=== PATIENT | male | born 1955 | race Caucasian/White ===

== ENCOUNTER 2023-12-18 05:47 | Inpatient (IN) ==
--- NOTE | 2023-11-29 11:53 | PAT Medication Instructions ---
Medication Instructions Date of Service November 29, 2023 Home Medications glipizide 5 mg tablet 5 mg PO BID lisinopril 10 mg tablet 10 mg PO QAM naproxen 250 mg tablet 250 mg PO BID PRN pioglitazone 45 mg tablet 45 mg PO QAM tamsulosin 0.4 mg capsule 0.8 mg PO HS ASK your surgeon for instructions naproxen 250 mg tablet 250 mg PO BID PRN DO NOT take the morning of surgery glipizide 5 mg tablet 5 mg PO BID lisinopril 10 mg tablet 10 mg PO QAM pioglitazone 45 mg tablet 45 mg PO QAM Take evening before surgery glipizide 5 mg tablet 5 mg PO BID tamsulosin 0.4 mg capsule 0.8 mg PO HS Other Notes NOTHING TO EAT OR DRINK AFTER MIDNIGHT. If you have any questions please call us at [phone] or [phone] or [phone] or [phone]
--- NOTE | 2023-12-04 12:55 | Anesthesiology Consultation ---
Date of Service December 04, 2023 Assessment & Plan (1) Encounter for pre-operative examination: - Check BSG AM DOS - Infectious disease screening: Per assessment on 12/04/23: No known infectious disease contacts or current infectious disease symptoms. No noted recent Covid positive test result. - S/P MRI lumbar spine without contrast (10/26/23): MAC at [facility] - Patient unable to void at PAT visit. He states he will take urine sample to upcoming PCP preop appt. Awaiting surgeon-ordered preop UA + preop evaluation (Dr. Herzog, appt 12/09). Chart Review Chart Review: Patient seen in Pre Admission Testing Teaching & Discussion Pre-Anesthesia Teaching/Discussion Notes: Instructed NPO after midnight before surgery,except medications with 15 cc of water. Medication instructions provided according to the [facility] guidelines. History Surgery Operation Date: 12/18/23 11:35 Proposed Procedures p L4-L5 Decompression and Fusion with Spinal Cord Monitoring - Tomás Paiz, Height/Weight Height: 5 ft 10 in Weight: 128.3 kg Allergies Allergy/AdvReac Type Severity Reaction Status Date / Time No Known Allergies Allergy Verified 11/28/23 08:28 Medications Home Medications Medication Instructions Recorded Confirmed Last Taken glipizide 5 mg tablet 5 mg PO BID 10/18/23 11/28/23 10/25/23 20:00 lisinopril 10 mg tablet 10 mg PO QAM 10/18/23 11/28/23 10/25/23 10:00 naproxen 250 mg tablet 250 mg PO BID PRN prn 10/18/23 11/28/23 10/25/23 20:00 pioglitazone 45 mg tablet 45 mg PO QAM 10/18/23 11/28/23 10/25/23 10:00 tamsulosin 0.4 mg capsule 0.8 mg PO HS 10/18/23 11/28/23 10/25/23 20:00 Past Medical History Medical History BPH (benign prostatic hyperplasia) Diabetes mellitus, type 2 NIDDM Hypertension Low back pain Exercise / Class Metabolic Activity II 4-5 Yardwork/Stairs/Walk up hill Past Surgical History Surgical History History of colonoscopy History of MRI MRI lumbar spine without contrast (10/26/23): MAC at [facility] History of right knee surgery right menicus repair History of tonsillectomy Hx of rotator cuff surgery right Past Anesthesia History No Hx of Anesthesia Complications and No Family Hx of Anesthesia Complications History of PONV No Hx of PONV and No Hx of Motion Sickness Social History Smoking Status: Never smoker Do You Dip or Chew Tobacco: Yes (Daily- advised none DOS) Hx Alcohol Use: No Hx Substance Use: No substance use type: does not use Review of Systems Patient denies chest pain, shortness of breath, dyspnea on exertion, fever, chills, cough, wheezing, palpitations. Physical Exam Vital Signs BP 159/83 P 78 TEMP 98.2 SP02 98%RA RESP 18 Physical Full cervical extension range of motion. Full TMJ range of motion. TMD 3 finger breaths Mallampati Score 3 Dentition: missing molars Lungs: clear throughout to auscultation Cardiac: regular rate and rhythm, no murmurs noted Spine: normal Carotid arteries: negative bruit Extremities: no LE edema Lab Results Anesthesia Preop Results Results Anesthesia Widget: WBC 5.37 K/ul (4.8-10.8) 12/04/23 Hgb 14.5 g/dl (14.0-18.0) 12/04/23 Hct 43.7 % (42.0-52.0) 12/04/23 Plt 150 K/uL (130-400) 12/04/23 Na 136 mmol/L (136-145) 12/04/23 K 4.6 mmol/L (3.5-5.1) 12/04/23 Cl 102 mmol/L (98-107) 12/04/23 CO2 27 mmol/L (21-32) 12/04/23 BUN 30 mg/dl (6-23) H 12/04/23 Creat 1.29 mg/dl (0.6-1.4) 12/04/23 Glucose Level 253 mg/dl (70-99(Fasting)) H 12/04/23 POC Glucose 139 mg/dl (70-99) H 10/26/23 PT 10.9 Seconds (9.0-12.0) 12/04/23 PTT 26 Seconds (21-31) 12/04/23 INR 1.0 (0.9-1.1) 12/04/23 HA1c 8.9 % (4.5-5.6) H 12/04/23 Blood Type B Positive 12/04/23 Antibody Screen NEGATIVE 12/04/23 Testing Laboratory Results *Surgeon's office made aware of elevated A1C + glucose* Electrocardiogram Date: 12/04/23 NSR at 77bpm. LAFB. Chest X-Ray Date: 12/04/23 FINDINGS: Cardiac silhouette is upper limits of normal in size. No pneumothorax, pleural effusion, airspace consolidation or pulmonary edema. Spondylitic spurring of the spine. IMPRESSION: No acute process.
[2023-12-18] MEDS ORDERED: DEXAMETHASONE SOD INJ 4 MG/ML VIAL ONE (06:57)
[2023-12-18] MEDS ORDERED: PROPOFOL IV EMULSION 10 MG/ML 20 ML VIAL IV ONE (06:57)
[2023-12-18] MEDS ORDERED: LIDOCAINE 2% 2 ML VIAL/AMP(20MG/ML) INFIL ONE ×2 (06:57)
[2023-12-18] MEDS ORDERED: fentaNYL citrate PF 100 MCG/2 ML VIAL ONE ×2 (06:57→08:18)
[2023-12-18] MEDS ORDERED: MIDAZOLAM HCL 1 MG/ML 2ML VIAL ONE (06:57)
[2023-12-18] MEDS ORDERED: ONDANSETRON INJ 2 MG/ML 2 ML VIAL ONE (06:57)
[2023-12-18] MEDS ORDERED: ROCURONIUM BROMIDE 10 MG/ML 5 ML VIAL IV ONE ×10 (06:58→08:16)
[2023-12-18] MEDS: ACETAMINOPHEN 500 MG TAB PO SCH (07:03)
[2023-12-18] MEDS: LR 15ML/HR IV SCH (07:04)
[2023-12-18] MEDS: GABAPENTIN 300 MG CAP PO SCH (07:04)
[2023-12-18] MEDS: CeleBREX 200 MG CAP PO SCH (07:08)
[2023-12-18] MEDS: LR 60ML/HR IV SCH (07:08)
--- NOTE | 2023-12-18 07:43 | History & Physical Bridge Note ---
Date of Service December 18, 2023 History & Physical Bridge Note I have examined the patient, reviewed the History & Physical and in the interval since the performance of the History & Physical I have noted the following changes of clinical significance: no changes noted
--- NOTE | 2023-12-18 07:44 | History & Physical Report ---
Date of Service December 18, 2023 Assessment & Plan (1) Neurogenic claudication due to lumbar spinal stenosis: Plan: L4-L5 decompression and fusion History of Present Illness Chief Complaint: Back and bilateral leg pain Primary Care Provider: Rm Tsang Capp, DO This is a 60-year-old male who presents with chronic persistent back and bilateral leg pain. Failing since course of nonoperative care is here for surgical invention. Allergies Allergy/AdvReac Type Severity Reaction Status Date / Time No Known Allergies Allergy Verified 12/18/23 06:48 Home Medications Medication Instructions Recorded Confirmed Type glipizide 5 mg tablet 5 mg PO BID 10/18/23 12/18/23 History lisinopril 10 mg tablet 10 mg PO QAM 10/18/23 12/18/23 History naproxen 250 mg tablet 250 mg PO BID PRN prn 10/18/23 12/18/23 History pioglitazone 45 mg tablet 45 mg PO QAM 10/18/23 12/18/23 History tamsulosin 0.4 mg capsule 0.8 mg PO HS 10/18/23 12/18/23 History Past Med/Surg History Medical History BPH (benign prostatic hyperplasia) Diabetes mellitus, type 2 NIDDM Hypertension Low back pain Surgical History History of colonoscopy History of MRI MRI lumbar spine without contrast (10/26/23): MAC at [facility] History of right knee surgery right menicus repair History of tonsillectomy Hx of rotator cuff surgery right Social History Smoking Status: Never smoker Second Hand Exposure: Yes ( smokes); Do You Dip or Chew Tobacco: Yes (Daily- advised none DOS); Tobacco Cessation Education Requested by Patient: No Hx Alcohol Use: No Hx Substance Use: No Preferred Language: Lithuanian Communication Ability: Effective Lime Vat Tender Required: No Beliefs That Will Affect Care: None Current Living Situation: Spouse Other Information That Helps Us Care for You: No Feels Safe at Home: Yes Safety Concerns: Feels Safe At This Time Assistive Devices: None Physical Exam Physical Exam: Patient is alert and oriented Heart regular rhythm Lungs clear Results & Data Results & Data Vital Signs (Past 12 Hours) Vital Signs Temp Pulse Resp BP Pulse Ox O2 Del Method 12/18/23 06:51 36.8 C 83 18 156/84 H 95 Room Air
[2023-12-18] MEDS: ceFAZolin 3000MG 3,000 MG/72.5 ML BAG IV SCH (07:51)
[2023-12-18] MEDS ORDERED: ePHEDrine sulfate 50 MG/ML AMP ONE (08:10)
[2023-12-18] MEDS: BUPIVACAINE/EPINEPHRINE 0.5% MPF 1:200,000 30 ML VIAL ONE (08:36)
[2023-12-18] MEDS: ceFAZolin 330 MG/ML 1 GM VIAL ONE (08:36)
[2023-12-18] MEDS ORDERED: PHENYLEPHRINE 100MCG/ML 10ML SYR IV ONE (08:41)
[2023-12-18] MEDS ORDERED: SUGAMMADEX SODIUM 200 MG/2 ML VIAL IV ONE (08:44)
[2023-12-18] MEDS ORDERED: SODIUM CHLORIDE 0.9% PF INJ 10 ML VIAL ONE ×2 (09:07)
[2023-12-18] MEDS ORDERED: PHENYLEPHRINE HCL 10 MG/ML VIAL ONE (09:08)
[2023-12-18] MEDS ORDERED: WATER, STERILE FOR INJ 10 ML VIAL ONE (09:10)
[2023-12-18] MEDS ORDERED: HYDROmorphone INJ 2 MG/ML SYR/VIAL IV PRN (09:16)
[2023-12-18] MEDS ORDERED: PROMETHAZINE HCL 6.25 MG in SODIUM CHLORIDE 0.9% 50 ML IV PRN (09:16)
[2023-12-18] MEDS ORDERED: ONDANSETRON INJ 2 MG/ML 2 ML VIAL IV PRN ×2 (09:16→11:05)
[2023-12-18] MEDS ORDERED: ATROPINE SULFATE 0.1 MG/ML 10ML SYR IV PRN (09:16)
[2023-12-18] MEDS ORDERED: ePHEDrine sulfate 50 MG/ML AMP IV PRN (09:16)
[2023-12-18] MEDS: FLOSEAL HEMOSTATIC MATRIX 10ML TOP ONE (09:33)
--- NOTE | 2023-12-18 09:44 | Operative Report ---
Post Operative Report Pre & Post Diagnosis Operation Date: 12/18/23 07:45 Pre-Op Diagnosis: #1 lumbar spinal stenosis with neurogenic claudication #2 spondylolisthesis L4-5 #3 morbid obesity Post-Op Diagnosis: Same I identified the patient and participated in the time-out.: Yes Procedure Operation Date: 12/18/23 07:45 Actual Procedures #1 lumbar decompression bilaterally facetectomies and foraminotomies L3-L4 L4- L5. #2 posterior spinal fusion L4-L5. #3 placed posterior instrumentation L4- L5. #4 interbody fusion L4-L5. #5 placement Spira 15 x 26 mm x 2 at L4-L5. #6 placement locally harvested morselized autograft and posterior gutters. #7 placement of infuse collagen sponge combined with Koros bone graft in the posterior gutters and Morpheus bone graft interbody space. Surgeon Tomás Paiz, Poiser Balance Mary Raymond Estimated Blood Loss 100 Findings See Below The patient is 5 foot 10 weighing over 120 kg with a BMI in excess of 40. The patient's body habitus did contribute to significant technical difficulty with positioning exposure and the procedure itself adding at least 50% increased operative time. Specimens None Indications This is a 60-year-old male who presents above-mentioned diagnosis after failing course of nonoperative care is here for surgical invention. Description of Procedure Patient was met with identified informed consent obtained. Patient was then taken to the operative suite underwent a patient placed in a prone position the Cesario table atop the Michael frame. All bony promises well-padded eyes inspected to ensure no external pressure placed upon them. This point the lumbar spine was prepped and draped in normal sterile fashion. Sharp dissection with the assistance of Bovie cautery from down to and exposing the lamina transverse processes of L4 and L5 bilaterally. From caudal cephalad fashion complete laminectomy of L4 was performed including bilateral medial facetectomies and foraminotomies addressing severe spinal stenosis. Partial laminectomy L3 was performed including bilateral medial facetectomies also addressing severe lateral recess stenosis. Pedicle screws were then placed in L for L5 bilaterally with assistance of fluoroscopy and appropriate sized yoselin placed. By way the transforaminal approach on the right a discectomy of L4-5 was performed endplates guided to subcortical bleeding bone and a 15 x 26 mm Spira cage filled with Morpheus tapped in position. Then proceeded to the left transforaminal region completed the discectomy at L4-L5 endplates guided to subcortically bone and a second 15 x 26 mm Spira cage filled with Morpheus bone graft tapped into position. The rods were then compressed locked into final position bilaterally. The transverse processes of L4-5 burred to subcortical bleeding bone. Infuse collagen sponge combined with Koros and local autograft placed in the posterior lateral gutters. 15 round RICKY drain inserted. The incision was then closed with 1 Vicryl in the fascia 2-0 Vicryl subcutaneously and 4 Monocryl for final skin closure. Steri-Strips sterile dressing placed. Patient waken taken to PACU in stable condition. Please note spinal cord monitoring was utilized at the procedure no changes noted. Lastly Mary Raymond was present at the entire procedure and all the patient positioning complex portion of the surgery and final skin closure. I attest to the content of the Intraoperative Record and any orders documented therein. Any exceptions are noted below.
--- NOTE | 2023-12-18 10:07 | Fluoroscopy Report ---
FL lumbar spine 2-3V CLINICAL HISTORY: L4-L5 Decompression/Fusion COMPARISON STUDY: None. FLUOROSCOPY TIME: 19 seconds FLUOROSCOPY IMAGES: 2 Ka,r: 19.2 mGy FINDINGS: Posterior decompression fusion at L4-L5 with pedicle screws and rods. The hardware appears intact. Disc spacers are in place. IMPRESSION: Fluoroscopic assistance as above. ACT 112: Negative or not required by law. Electronically signed by: Terry Knowles M.D. 12/18/2023 10:05 AM
[2023-12-18] MEDS: fentaNYL citrate PF 100 MCG/2 ML VIAL IV PRN (10:23)
[2023-12-18] MEDS ORDERED: LORazepam 0.5 MG TAB PO PRN (11:05)
[2023-12-18] MEDS ORDERED: traMADol HCL 50 MG TABLET PO PRN (11:05)
[2023-12-18] MEDS ORDERED: PHARMACY GLYCEMIC MGMT CONSULT PRN (11:05)
[2023-12-18] MEDS ORDERED: NALOXONE HCL 0.4 MG/1 ML VIAL/CARP IV PRN (11:05)
[2023-12-18] MEDS ORDERED: MAGNESIUM HYDROXIDE SUSP 30 ML UDC PO PRN (11:05)
[2023-12-18] MEDS ORDERED: ONDANSETRON 4 MG OD TAB PO PRN (11:05)
[2023-12-18] MEDS ORDERED: LORazepam 0.5 MG in SYRINGE 0.25 ML IV PRN (11:05)
[2023-12-18] MEDS ORDERED: FAMOTIDINE 20 MG TAB PO PRN (11:05)
[2023-12-18] MEDS ORDERED: DO NOT ADMINISTER FLU VACCINE PRN (11:05)
[2023-12-18] MEDS ORDERED: PROMETHAZINE HCL 12.5 MG in SODIUM CHLORIDE 0.9% 50 ML IV PRN (11:05)
[2023-12-18] MEDS ORDERED: ACETAMINOPHEN 500 MG TAB PO PRN (11:05)
[2023-12-18] MEDS ORDERED: HYDROmorphone INJ 1 MG/ML SYRINGE IV PRN (11:05)
[2023-12-18] MEDS ORDERED: ALUMINUM/MAGNESIUM SUSP 30 ML UDC PO PRN (11:05)
[2023-12-18] MEDS ORDERED: hydrOXYzine HCl 25 MG TAB PO PRN (11:05)
[2023-12-18] MEDS ORDERED: DO NOT ADMINISTER PNEUMOCOCCAL VACCINE PRN (11:05)
[2023-12-18] MEDS ORDERED: METOCLOPRAMIDE HCL INJ 5 MG/ML 2 ML VIAL IV PRN (11:05)
[2023-12-18] MEDS ORDERED: SOD PHOSPHATE/SOD BIPHOSPHATE ENEMA 132 ML BTL PR PRN (11:05)
[2023-12-18] MEDS ORDERED: diphenhydrAMINE Capsule 25 MG CAP PO PRN (11:05)
[2023-12-18] MEDS ORDERED: bisacodyL 10 MG SUPP PR PRN (11:05)
[2023-12-18] MEDS ORDERED: ACETAMINOPHEN 1,000 MG/100 ML VIAL IV PRN (11:05)
--- NOTE | 2023-12-18 11:26 | Consultation ---
Date of Consultation December 18, 2023 Assessment & Plan (1) Neurogenic claudication due to lumbar spinal stenosis: (2) Hypertension: (3) Diabetes mellitus, type 2: (4) BPH (benign prostatic hyperplasia): Plan Mr. Alaniz is a 68 year old male that presents to the [facility] for a planned elective L4-L5 decompression and fusion surgery after experiencing persistent back pain and leg pain with failed conservative treatment as an outpatient. PMH includes: HTN, NIDDM2, and BPH. Pre-op Hgb 14.5;EBL 100mL. Pre op A1C 8.9; received Decadron; anticipate hyperglycemia post op. Neurogenic claudication due to lumbar spinal stenosis: POD#0 s/p L4-L5 decompression and fusion under the care of Dr. Paiz. Per ortho for pain control, wound care, anticoagulation and activities. Monitor H&H, pre op Hgb 14.5 on 12/03; trend in AM continue incentive spirometry PT/OT when appropriate HTN: Chronic Takes Lisinopril; continue NIDDM2: Chronic Takes Actos and Glipizide; hold while inpt and place on ACHS SSI Received Decadron which can cause hyperglycemia Most recent A1C: 8.9 on 12/03 Diabetic diet per admitting team BPH: Chronic Takes Tamsulosin;continue Disposition: PCP: Dr. Rm Herzog in [place] Code Status: Full Code VTE Prophylaxis: Per admitting team I spent a total of 60 minutes coordinating, documenting, and providing care for this patient excluding time spent in the performance of separately billed services. All of the aforementioned completed while collaborating with the assigned attending physician for a full treatment plan. Please see their addendum for further details. Supervising Physician Co-Signing Physician Notes I have seen and discussed the case with the collaborating advanced practitioner. I agree with the above H&P. I have reviewed and confirmed the patients medical history, the findings on physical examination, and the patients diagnosis and treatment plan with Drea GRANT and agree with the information documented. In short, Mr. Pedro is a 68 year old gentleman with history of HTN, NIDDM2, and BPH who is now POD 0 of lumbar decompression and fusion. Patient doing well post-operatively. Instructed on use of incentive spirometry. GENERAL APPEARANCE: AxOx4, no acute distress. HEENT: NC, AT. MMM. EOMI, clear conjunctiva, oropharynx clear. NECK: Supple without lymphadenopathy. No stiffness or restricted ROM. HEART: Normal rate and regular rhythm, normal S1/S1, no m/r/g LUNGS: CTAB, moving air well. No crackles or wheezes are heard. ABDOMEN: Soft, nontender, nondistended with good bowel sounds heard. BACK: No CVAT, no obvious deformity. EXTREMITIES: Without cyanosis, clubbing or edema. NEUROLOGICAL: Grossly nonfocal. Alert and oriented, moving all 4 extremities. CN not formally tested but appear grossly intact. Observed to ambulate with nor mal gait. Skin: Warm and dry without any rash. #Neurogenic claudication s/p fusion and decompression Management per primary Follow CBC for post-op anemia, hgb 14.5 (12/03) Pain mgmt per pcp #DMTII Hold home oral antihyperglycemics SSI #HTN Continue lisinopril Rest of plan as above #BPH Tamsulosin I spent a total of 35 minutes coordinating, documenting, and providing care for this patient excluding time spent in the performance of separately billed services. All of the aforementioned completed outside of collaborating with the assigned advanced practitioner for a full treatment plan. I have reviewed the advanced practitioner's documentation, and I agree with, and take responsibility for the plan of care History of Present Illness Requesting Physician: Dr. Paiz Reason for Consultation: post operative medical consultation Attending Physician: Tomás Paiz, DO History of Present Illness Mr. Alaniz is a 68 year old male that presents to the [facility] for a planned elective L4-L5 decompression and fusion surgery after experiencing persistent back pain and leg pain with failed conservative treatment as an outpatient. PMH includes: HTN, NIDDM2, and BPH. Pre-op Hgb 14.5;EBL 100mL. Pre op A1C 8.9; received Decadron; anticipate hyperglycemia post op. Pt denies CUEVAS, dizziness, SOB, chest pain, Palpitations, N/V/D, abdominal pain or tenderness, recent falls or trauma. Pt sitting upright in his hospital bed, arousable and able to have full conversation. He is AAO x4. He was able to demonstrate appropriate incentive sp[facility]rometry use. [facility] management. We are available 19/03 for any questions or concerns. Thank you kindly for the consultation. Allergies Allergy/AdvReac Type Severity Reaction Status Date / Time No Known Allergies Allergy Verified 12/18/23 06:48 Home Medications Medication Instructions Recorded Confirmed Type glipizide 5 mg tablet 5 mg PO BID 10/18/23 12/18/23 History lisinopril 10 mg tablet 10 mg PO QAM 10/18/23 12/18/23 History naproxen 250 mg tablet 250 mg PO BID PRN prn 10/18/23 12/18/23 History pioglitazone 45 mg tablet 45 mg PO QAM 10/18/23 12/18/23 History tamsulosin 0.4 mg capsule 0.8 mg PO HS 10/18/23 12/18/23 History Patient History Medical History (Updated 12/18/23 @ 11:24 by JUANITA Rm) Diabetes mellitus, type 2 NIDDM BPH (benign prostatic hyperplasia) Low back pain Hypertension Surgical History History of MRI MRI lumbar spine without contrast (10/26/23): MAC at [facility] History of right knee surgery right menicus repair Hx of rotator cuff surgery right History of colonoscopy History of tonsillectomy Social History Smoking Status: Never smoker Second Hand Exposure: Yes ( smokes); Do You Dip or Chew Tobacco: Yes (Daily- advised none DOS); Tobacco Cessation Education Requested by Patient: No Hx Alcohol Use: No Hx Substance Use: No Preferred Language: Wolof Communication Ability: Effective Managing Attorney Required: No Beliefs That Will Affect Care: None Current Living Situation: Spouse Other Information That Helps Us Care for You: No Feels Safe at Home: Yes Safety Concerns: Feels Safe At This Time Assistive Devices: None Review of Systems Review of Systems: Neuro: (-) Falls, trauma, slurred speech HEENT: (-) CUEVAS, dizziness, dysphagia, visual or auditory changes CV: (-) CP, palpitations, swelling Resp: (-) SOB GI: (-) appetite changes, N/V/D, bowel changes : (-) urinary changes Skin: (-) rashes Psych: (-) anxiety, depression Physical Exam Physical Exam: Neuro: AAOx4, PERRLA, no aphagia, memory changes, CNII-XII grossly intact HEENT: head normocephalic, moist mucus membranes CV: S1/S2, (-) M/G/R, (-) edema, cap refill < 3 seconds Resp: Lungs CTA in all metzger. On RA GI: Abdomen S/NT/ND, Ax4 bowel sounds, (-) CVA tenderness Musculoskeletal: 5/5 B/L UE strength, 5/5 B/L LE strength. No gait disturbance Skin: (-) rashes , (-) erythema. Psych: euthymic mood Results & Data Vital Signs (Past 12 Hours) Vital Signs Temp Pulse Pulse Resp BP BP Pulse Ox 12/18/23 10:40 36.5 C 83 12 123/75 97 12/18/23 10:30 82 12 147/79 H 98 12/18/23 10:20 80 12 124/75 97 12/18/23 10:10 81 12 156/80 H 96 12/18/23 10:03 36.0 C L 79 16 184/85 H 92 12/18/23 06:51 36.8 C 83 18 156/84 H 95 O2 Del Method O2 Flow Rate 12/18/23 10:40 Nasal Cannula 2 12/18/23 10:30 Nasal Cannula 2 12/18/23 10:20 Oxymask 4 12/18/23 10:10 Oxymask 4 12/18/23 10:03 Room Air, Oxymask 6 12/18/23 06:51 Room Air
--- NOTE | 2023-12-18 11:27 | Anesthesiology Progress Note ---
Date of Service December 18, 2023 Anesthesia Post Procedure Vital Signs Vital Signs: Temp Pulse Pulse Resp BP BP Pulse Ox 12/18/23 11:00 36.6 C 86 16 138/81 98 12/18/23 10:40 36.5 C 83 12 123/75 97 12/18/23 10:30 82 12 147/79 H 98 12/18/23 10:20 80 12 124/75 97 12/18/23 10:10 81 12 156/80 H 96 12/18/23 10:03 36.0 C L 79 16 184/85 H 92 12/18/23 06:51 36.8 C 83 18 156/84 H 95 O2 Del Method O2 Flow Rate 12/18/23 11:00 Nasal Cannula 2 12/18/23 10:40 Nasal Cannula 2 12/18/23 10:30 Nasal Cannula 2 12/18/23 10:20 Oxymask 4 12/18/23 10:10 Oxymask 4 12/18/23 10:03 Room Air, Oxymask 6 12/18/23 06:51 Room Air Pain Intensity Back: Pain Intensity: 3 Transfer of Care Handoff Completed per policy Notes Mental Status: alert / awake / arousable and participated in evaluation Patient Amnestic to Procedure: Yes Nausea / Vomiting: adequately controlled Pain: adequately controlled Airway Patency, RR, SpO2: stable & adequate BP & HR: stable & adequate Hydration State: stable & adequate Anesthetic Complications: no major complications apparent
[2023-12-18] MEDS: LACTATED RINGER'S 1,000 ML IV SCH (12:16)
[2023-12-18] MEDS: KETOROLAC 30 MG/ML VIAL IV SCH (12:16)
[2023-12-18] MEDS: INSULIN ASPART PER UNIT CHARGE SC SCH (12:35)
[2023-12-18] MEDS: LANTUS PER UNIT CHARGE SC SCH (12:36)
--- NOTE | 2023-12-18 13:09 | Pharmacy Report ---
Pharmacy Glycemic Short Note 2 - Date of Service December 18, 2023 - Glycemic Short BSG Results (Last 24 hours): 12/18/23 12/18/23 12/18/23 06:26 10:06 11:22 POC Glucose 275 H 276 H 299 H OUTPATIENT ANTIDIABETIC REGIMEN: * glipizide 10mg PO BID * pioglitazone 45mg PO QAM * HbA1c 8.9% (12/04/23) ASSESSMENT: * Tiago is a 68 YOM admitted status post spinal decompression/fusion with a history of type 2 diabetes mellitus. Pharmacy has been consulted for glycemic management while inpatient. * Preoperative BSG significantly elevated this AM, he does not appear to have received steroids preoperatively. Will initiate basal insulin at a weight based stress of 2. He is ordered dexamethasone 6mg IV daily x3 days starting tomorrow. Reassess basal insulin response, will likely have increased requirements with steroids. * Novolog started at a weight based stress of 2, will likely need tightened tomorrow with steroids. PLAN FOR INPATIENT GLYCEMIC CONTROL: * Hold outpatient oral diabetes medications * Basal insulin * Lantus 16 units SQ BID, reassess with steroids in AM * Bolus insulin * NovoLog per scale ACHS or Q6hrs while NPO * Goal Range: Low 110 mg/dL - High 140 mg/dL * Correction Factor: 25 mg/dL/unit * Nutritional / Prandial insulin per carb ratio of 1 unit per 8 grams CHO consumed
[2023-12-18] MEDS: ceFAZolin 2000MG 2,000 MG/15 ML SYR IV SCH (18:10)
[2023-12-18] MEDS: TAMSULOSIN HCL 0.4 MG CAP PO SCH (19:31)
[2023-12-18] MEDS: DOCUSATE SODIUM/SENNA 50/8.6MG TAB PO SCH (19:31)
[2023-12-18] MEDS ORDERED: glipiZIDE 5 MG TAB PO SCH (21:00)
[2023-12-19] MEDS: POLYETHYLENE (MIRALAX) 17 GM PACK PO SCH (05:18)
[2023-12-19] MEDS: HYDROmorphone INJ 0.5 MG/0.5 ML SYR IV PRN (05:31)
[2023-12-19 07:34] LABS: Basophils # (auto) 0.02 K/uL (0.00-0.20); Basophils % (auto) 0.2 %; Eosinophils # (auto) 0.06 K/uL (0.00-0.50); Eosinophils % (auto) 0.6 %; Hematocrit (blood only) 38.1 % (42.0-52.0); Hemoglobin 12.7 g/dl (14.0-18.0); Immature Granulocytes # (auto) 0.06 K/uL (0.01-0.20); Immature Granulocytes % (auto) 0.6 %; Lymphocytes % (auto) 17.1 %; Mean Corpuscular Hemoglobin 28.9 pg (25.0-34.0); Mean Corpuscular Hgb Conc 33.3 g/dL (32.0-36.0); Mean Corpuscular Volume 86.6 fL (80.0-100.0); Mean Platelet Volume 10.7 fL (9.4-12.4); Monocytes # (auto) 1.47 K/uL (0.11-0.59); Monocytes % (auto) 14.8 %; Neutrophils # (auto) 6.64 K/uL (1.40-6.50); Neutrophils % (auto) 66.7 %; Platelet Count 139 K/uL (130-400); RDW Coefficient of Variation 13.3 % (11.5-14.5); RDW Standard Deviation 42.8 fL (36.4-46.3); White Blood Count 9.95 K/ul (4.8-10.8)
[2023-12-19 07:39] LABS: BUN Creatinine Ratio 24.1 (10-20); Calcium 8.8 mg/dl (8.6-10.3); Creatinine Clr Calc Pharmacy 58.4 ml/min; Est GFR (African American) 49.8 ml/min; Potassium 4.6 mmol/L (3.5-5.1)
[2023-12-19] MEDS: dexAMETHasone 6 MG in SYRINGE 0 ML IV SCH (07:46)
[2023-12-19] MEDS: lisinopril 10 MG TAB PO SCH (07:50)
[2023-12-19] MEDS ORDERED: NON-FORMULARY MEDICATION (Pioglitazone 45 mg Tablet) PO SCH (09:00)
[2023-12-19] MEDS: LANTUS PER UNIT CHARGE SC SCH (09:08)
--- NOTE | 2023-12-19 09:47 | Orthopedic Progress Note ---
Date of Service December 19, 2023 Assessment & Plan (1) Neurogenic claudication due to lumbar spinal stenosis: Plan: At this time we will continue physical therapy monitor his RICKY output anticipate discharge home in next few days. Admission and Anticipated Discharge Date Admission Date: December 18, 2023 Subjective Back pain controlled leg pain markedly improved Physical Exam Physical Exam: Patient is in the chair at the bedside. Is good strength testing. Peers comfortable. Results & Data Vital Signs (Past 12 Hours) Vital Signs Temp Pulse Resp BP Pulse Ox O2 Del Method 12/19/23 07:09 37.4 C 87 20 129/74 95 Room Air 12/19/23 03:02 37.1 C 90 16 143/77 H 96 Room Air 12/18/23 23:19 37.1 C 77 16 164/79 H 98 Room Air Queries Orthopedic Spine Obesity: Yes
--- NOTE | 2023-12-19 17:22 | Hospitalist Progress Note ---
Date of Service December 19, 2023 Assessment & Plan (1) Neurogenic claudication due to lumbar spinal stenosis: (2) Hypertension: (3) Diabetes mellitus, type 2: (4) BPH (benign prostatic hyperplasia): Plan Mr. Alaniz is a 68 year old male that presents to the [facility] for a planned elective L4-L5 decompression and fusion surgery after experiencing persistent back pain and leg pain with failed conservative treatment as an outpatient. PMH includes: HTN, NIDDM2, and BPH. Pre-op Hgb 14.5;EBL 100mL. Pre op A1C 8.9; received Decadron; anticipate hyperglycemia post op. Neurogenic claudication due to lumbar spinal stenosis: s/p L4-L5 decompression and fusion on 12/18/2023 under the care of Dr. Paiz. Per ortho for pain control, wound care, anticoagulation and activities. Monitor H&H, pre op Hgb 14.5 on 12/03; trend in AM continue incentive spirometry PT/OT when appropriate Clinically much better Labs remain unremarkable except creatinine is slightly up at 1.62 He was advised to drink more fluid Will monitor PRP HTN: Chronic Takes Lisinopril; continue NIDDM2: Chronic Takes Actos and Glipizide; hold while inpt and place on ACHS SSI Received Decadron which can cause hyperglycemia Most recent A1C: 8.9 on 12/03 Diabetic diet per admitting team BPH: Chronic Takes Tamsulosin;continue Disposition: PCP: Dr. Rm Herzog in [place] Code Status: Full Code VTE Prophylaxis: Per admitting team Admission and Anticipated Discharge Date Admission Date: December 18, 2023 Subjective 12/19/2023 The patient was seen and examined in medical floor He has been complaining some pain at the back but radiculopathic pain has been improving No chest pain and no shortness of breath and no abdominal pain nausea no vomiting Review of Systems Review of Systems: All systems reviewed and are unremarkable except as noted below Physical Exam Physical Exam: Sitting on a chair without any acute distress Constitutional: well developed, well nourished and + obese; not ill appearing Eyes: PERRL, conjunctivae normal, anicteric sclerae ENMT: external ear and nose normal, oropharynx normal Neck: trachea midline, no thyromegaly Respiratory: no respiratory distress Auscultation: lungs clear to auscultation bilaterally Cardiovascular: Rate/Rhythm: regular rate and regular rhythm; not tachycardic Heart Sounds: normal S1 and normal S2; no murmur Extremities: no edema Gastrointestinal (Abdomen): Inspection/Auscultation: normal bowel sounds; abdomen not distended Percussion/Palpation: abdomen soft; abdomen nontender Musculoskeletal: No acute arthritis involving any of the joint Neurologic: normal touch/pain/proprioception and moves all extremities; no focal motor deficits Psychiatric: A+Ox3, euthymic affect Lymphatic: no cervical or axillary lymphadenopathy Results & Data Results & Data Vital Signs (Past 12 Hours) Vital Signs Temp Pulse Resp BP Pulse Ox O2 Del Method 12/19/23 14:26 37.5 C 92 H 18 131/78 95 Room Air 12/19/23 07:09 37.4 C 87 20 129/74 95 Room Air Laboratory Results Short CBC 12/19/23 Range/Units 06:34 WBC 9.95 (4.8-10.8) K/ul Hgb 12.7 L (14.0-18.0) g/dl Hct 38.1 L (42.0-52.0) % Plt Count 139 (130-400) K/uL BMP 12/19/23 06:34 Sodium 135 L Potassium 4.6 Chloride 102 Carbon Dioxide 24 BUN 39 H Creatinine 1.62 H Glucose 197 H Calcium 8.8 Medications Administered Current Inpatient Medications Acetaminophen (Acetaminophen 500 Mg Tab) 1,000 mg PO Q8H PRN PRN Reason: MILD Pain Scale 1,2,3 & Pre PT Stop: 01/17/24 11:04 Al Hydrox/Mg Hydrox/Simethicone (Aluminum/Magnesium Susp 30 Ml Udc) 30 ml PO Q6H PRN PRN Reason: Dyspepsia Stop: 01/17/24 11:04 Bisacodyl (Bisacodyl 10 Mg Supp) 10 mg NM DAILY PRN PRN Reason: Constipation Stop: 01/17/24 11:04 Diphenhydramine HCl (Diphenhydramine Capsule 25 Mg Cap) 25 mg PO Q6H PRN PRN Reason: Allergic Rhinitis/Insomnia Stop: 01/17/24 11:04 Famotidine (Famotidine 20 Mg Tab) 20 mg PO Q12H PRN PRN Reason: Dyspepsia Stop: 01/17/24 11:04 Hydromorphone HCl (Hydromorphone Inj 0.5 Mg/0.5 Ml Syr) 0.5 mg IV Q3H PRN PRN Reason: MODERATE Pain (Scale 4,5,6) & Pre PT Stop: 01/01/24 11:04 Last Admin: 12/19/23 05:31 Dose: 0.5 mg Hydromorphone HCl (Hydromorphone Inj 1 Mg/Ml Syringe) 1 mg IV Q3H PRN PRN Reason: SEVERE Pain (Scale 7,8,9,10) Stop: 01/01/24 11:04 Hydroxyzine HCl (Hydroxyzine Hcl 25 Mg Tab) 25 mg PO Q8H PRN PRN Reason: Anxiety Stop: 01/17/24 11:04 Promethazine HCl 12.5 mg/ (Sodium Chloride) 50.5 mls @ 202 mls/hr IV Q6H PRN PRN Reason: Nausea &/or Vomiting Stop: 01/17/24 11:04 Lorazepam 0.5 mg/ Syringe 0.5 mls @ 2 mls/min IV Q8H PRN; Protocol PRN Reason: Sedation/Anxiety Stop: 01/17/24 11:04 Dexamethasone 6 mg/ Syringe 1.5 mls @ 1 mls/min IV DAILY [facility] Stop: 12/21/23 09:02 Last Admin: 12/19/23 07:46 Dose: 1 mls/min Influenza Virus Vaccine Quadrival (Do Not Administer Flu Vaccine) 1 each N/A PRN PRN PRN Reason: Notification Stop: 01/17/24 11:04 Insulin Aspart (Insulin Aspart Per Unit Charge) 0 units SC ACHS [facility] Stop: 01/17/24 11:59 Last Admin: 12/19/23 12:47 Dose: 13 units Insulin Glargine (Lantus Per Unit Charge) 25 units SC BID [facility]; Protocol Stop: 01/18/24 08:59 Last Admin: 12/19/23 09:08 Dose: 25 units Lisinopril (Lisinopril 10 Mg Tab) 10 mg PO QAM [facility] Stop: 01/18/24 08:59 Last Admin: 12/19/23 07:50 Dose: 10 mg Lorazepam (Lorazepam 0.5 Mg Tab) 0.5 mg PO Q8H PRN PRN Reason: Sedation/Anxiety Stop: 01/17/24 11:04 Magnesium Hydroxide (Magnesium Hydroxide Susp 30 Ml Udc) 30 ml PO Q24H PRN PRN Reason: Constipation Stop: 01/17/24 11:04 Metoclopramide HCl (Metoclopramide Hcl Inj 5 Mg/Ml 2 Ml Vial) 10 mg IV Q6H PRN PRN Reason: Nausea &/or Vomiting Stop: 01/17/24 11:04 Miscellaneous Information (Pharmacy Glycemic Mgmt Consult) 1 each N/A UD PRN PRN Reason: Consult Stop: 01/17/24 11:04 Naloxone HCl (Naloxone Hcl 0.4 Mg/1 Ml Vial/Carp) 0.1 mg IV Q5M PRN PRN Reason: Oversedation/Resp depression Stop: 01/17/24 11:04 Ondansetron HCl (Ondansetron Inj 2 Mg/Ml 2 Ml Vial) 4 mg IV Q6H PRN PRN Reason: Nausea &/or Vomiting Stop: 01/17/24 11:04 Ondansetron HCl (Ondansetron 4 Mg Od Tab) 4 mg PO Q6H PRN PRN Reason: Nausea Stop: 01/17/24 11:04 Oxycodone HCl (Oxycodone Hcl Ir 5 Mg Tab (Immediate Release)) 5 - 10 mg PO Q4H PRN PRN Reason: Pain & Pre PT Stop: 01/01/24 11:04 Pneumococcal Polyvalent Vaccine (Do Not Administer Pneumococcal Vaccine) 1 each N/A PRN PRN PRN Reason: Notification Stop: 01/17/24 11:04 Senna/Docusate Sodium (Docusate Sodium/Senna 50/8.6mg Tab) 2 tab PO HS [facility] Stop: 01/17/24 20:59 Last Admin: 12/18/23 19:31 Dose: 2 tab Sodium Biphosphate/Sodium Phosphate (Sod Phosphate/Sod Biphosphate Enema 132 Ml Btl) 132 ml NM ONE PRN PRN Reason: Constipation Stop: 01/17/24 11:04 Tamsulosin HCl (Tamsulosin Hcl 0.4 Mg Cap) 0.8 mg PO HS [facility] Stop: 01/17/24 20:59 Last Admin: 12/18/23 19:31 Dose: 0.8 mg Tramadol HCl (Tramadol Hcl 50 Mg Tablet) 50 - 100 mg PO Q4H PRN PRN Reason: Moderate-Severe pain & Pre PT Stop: 01/17/24 11:04
[2023-12-19] MEDS: INSULIN ASPART PER UNIT CHARGE SC SCH (23:51)
[2023-12-19] MEDS: oxyCODONE HCL IR 5 MG TAB (IMMEDIATE RELEASE) PO PRN (23:52)
[2023-12-20 08:58] LABS: Basophils # (auto) 0.02 K/uL (0.00-0.20); Basophils % (auto) 0.2 %; Eosinophils % (auto) 0.8 %; Hematocrit (blood only) 38.6 % (42.0-52.0); Hemoglobin 12.8 g/dl (14.0-18.0); Immature Granulocytes # (auto) 0.15 K/uL (0.01-0.20); Immature Granulocytes % (auto) 1.2 %; Lymphocytes # (auto) 1.88 K/uL (1.20-3.40); Lymphocytes % (auto) 14.9 %; Mean Corpuscular Hemoglobin 28.9 pg (25.0-34.0); Mean Corpuscular Hgb Conc 33.2 g/dL (32.0-36.0); Mean Corpuscular Volume 87.1 fL (80.0-100.0); Mean Platelet Volume 10.6 fL (9.4-12.4); Monocytes # (auto) 2.07 K/uL (0.11-0.59); Monocytes % (auto) 16.5 %; Neutrophils # (auto) 8.36 K/uL (1.40-6.50); Neutrophils % (auto) 66.4 %; Platelet Count 147 K/uL (130-400); RDW Coefficient of Variation 13.3 % (11.5-14.5); RDW Standard Deviation 42.8 fL (36.4-46.3); Red Blood Count 4.43 M/uL (4.70-6.10); White Blood Count 12.58 K/ul (4.8-10.8)
[2023-12-20 09:12] LABS: Calcium 9.1 mg/dl (8.6-10.3); Creatinine Clr Calc Pharmacy 63.1 ml/min; Est GFR (African American) 54.7 ml/min; Est GFR (Non-African American) 47.2 ml/min; Potassium 4.3 mmol/L (3.5-5.1)
--- NOTE | 2023-12-20 10:54 | Discharge Summary ---
Date of Service December 20, 2023 Admission HPI Per Admitting Provider This is a 60-year-old male who presents with chronic persistent back and bilateral leg pain. Failing since course of nonoperative care is here for surgical invention. Principal Diagnosis Lumbar spinal stenosis with neurogenic claudication Discharge Data Allergies Allergy/AdvReac Type Severity Reaction Status Date / Time No Known Allergies Allergy Verified 12/18/23 06:48 Consultations 12/18/23 11:05 Consult Hospitalist Routine Procedures Performed Operation Date: 12/18/23 07:45 Actual Procedures p L4-L5 Decompression and Fusion with Spinal Cord Monitoring(Not Applicable) - Tomás Paiz DO Ordered Studies 12/18/23 07:00 [place] lumbar spine 2-3V Routine Hospital Course (1) Neurogenic claudication due to lumbar spinal stenosis: Patient went lumbar decompression fusion tolerated this well was taken to the orthopedic floor postoperative. Postop he progressed appropriate. Leg pain improved RICKY drain decreasing appropriately. Excellent strength testing. Pain well-controlled. Subsidy discharged home. Discharge orders instructions from the chart for further review. Total Time Total Time Spent Total Time Spent (In Minutes): 20 minutes Discharge Plan Discharge Items Patient Disposition: Home - Self-Care Reason For Visit: POST OP Discharge Diagnosis: Lumbar spinal stenosis with neurogenic claudication Activity: As commented below Non-emergency contact: Primary Care Provider Call non-emergency contact if: you have any medication questions Follow-up/Referrals: Rm Herzog DO [Primary Care Provider] - Diet: Regular Addtl Attending Provider Instructions: ACTIVITY RECOMMENDATIONS: SELF CARE INSTRUCTIONS AFTER THORACIC/LUMBAR FUSIONS 1. You may walk to your tolerance. It is good exercise for your legs and back. Expect some back and intermittent leg aches and pains. 2. You may perform "counter-top" level activities (make a sandwich, josseline with a project, etc.). 3. No bending or lifting of more than 10 pounds or back twisting of any nature (roll like a log when turning in bed). 4. You may ride in a car for 20-30 minutes at a time. No driving until after your first visit with your doctor. 5. Frequent changes of position and restricting sitting to 30 minutes at a time will help limit the amount of back spasms and stiffness you may experience. 6. You may discontinue the use of ambulatory aids (cane, crutches, etc.) once your strength and confidence allow. 7. You may photofinishing laboratory worker the shower and let water strike your incision when you arrive home at least once daily. Do not take a tub bath, sit in a hot tub or go into a swimming pool until after your first recheck in the office. SPECIAL CARE INSTRUCTIONS: VERY IMPORTANT TO READ AND REVIEW A. Your surgical incision has been closed with a cosmetic suture under the skin that will dissolve in about 6 weeks. In 14 days, you can use a pair of clean scissors and cut the suture that is left outside of the skin at the ends of your incision. 1. The small skin tapes can be removed 7 days after surgery if they have not fallen off by that point. 2. You may keep the wound open to air as much as possible to promote healing after post-op day number 5 unless told otherwise by your doctor. 3. If you think the wound looks like it is becoming infected (redness or worsening drainage) and/or you are experiencing fever, chill or worsening back pain and muscle spasms, contact the office so that we may evaluate you as soon as possible. B. Complications are uncommon, but please contact us if you have any signs or symptoms of: 1. wound infection (fever higher than 102.5 degrees F, redness, separation of wound, drainage, or increasing pain from the incision) 2. blood clots in legs (pain, swelling, redness and warmth in legs) 3. urinary tract infection (fever higher than 102.5 degrees F, burning upon urination or increased frequency of urination) 4. nerve problems (inability to walk on your toes or heels, numbness, loss of bowel or bladder control) 5. any other symptoms that concern you C. Please call the office at if you have any concerns or questions about your operation or recovery. D. No smoking! Smoking drastically decreases the chance of a solid fusion. E. Do not take any anti-inflammatory medications (Indocin, Advil, Motrin, Aspirin, Naprosyn, etc.) as these may inhibit the chance of a solid fusion. Tylenol is okay to take for pain. MANAGING PAIN AFTER SPINAL SURGERY 1. Narcotic medication is intended for short-term use and will be provided for surgical pain. Surgical pain usually lasts for a period of 4-6 weeks. Narcotic medication includes Percocet, Vicodin, Darvocet, Tylenol #3 or Lortab. 2. Longer-term pain is more appropriately treated with non-narcotic medication such as Tylenol ES. 3. Muscle spasm is not appropriately treated with narcotics. Muscle relaxers such as Soma, Flexeril or Skelaxin can be used along with Tylenol ES. 4. Remember that we all live with some "aches and pains". This is not unusual or uncommon after an injury or as we get older. a. Back pain is expected and may include muscle spasms for 4 to 6 weeks after surgery. The pain should gradually improve. If the pain worsens for no apparent reason, please contact the office. b. Intermittent leg pain may also be experienced and should not be concerned about unless it worsens for no apparent reason. If so, please contact the office. 5. We will provide appropriate medication within the normal guidelines of their prescribed use. We will also be very cautious and aware of potential abuse and extended duration of patients' medication needs. a. Pain medications are for your comfort and to assist with sleep and rest so that the tissue can heal. They are not provided in order to return to normal activity and should not be used through the day. To do so or worsening pain at night can result from ongoing tissue damage and development of tolerance to the prescribed medicine. 6. Please allow 2-3 days to process refills. Prescriptions will not be mailed but must be picked up at the office. FOLLOW UP VISIT: Keep your scheduled follow-up appointment. Any questions, please call the office at . Pending Studies at Discharge: No Stand-Alone Forms: My [facility], Smoking Cessation Medications and DC Order Prescriptions: New tramadol 50 mg tablet 50 mg PO Q6H PRN (Reason: pain, moderate) Qty: 30 0RF oxycodone 5 mg tablet 5 mg PO Q6H PRN (Reason: pain) Qty: 30 0RF Continued lisinopril 10 mg Tablet 10 mg PO QAM pioglitazone 45 mg Tablet 45 mg PO QAM tamsulosin 0.4 mg Capsule 0.8 mg PO HS glipizide 5 mg Tablet 5 mg PO BID Discontinued naproxen 250 mg Tablet 250 mg PO BID PRN (Reason: prn) Discharge Orders: Discharge Order (Routine); Ordered 12/20/23 Ordered By: Tomás Paiz Admission Data Admit Date/Time: 12/18/23 09:46 Attending Provider: Tomás Paiz Admit Provider: Tomás Paiz Primary Care Provider: Rm Herzog Other Providers: Socorro Gleason
--- NOTE | 2023-12-20 14:51 | Hospitalist Progress Note ---
Date of Service December 20, 2023 Assessment & Plan (1) Neurogenic claudication due to lumbar spinal stenosis: (2) Hypertension: (3) Diabetes mellitus, type 2: (4) BPH (benign prostatic hyperplasia): Plan Mr. Alaniz is a 68 year old male that presents to the [facility] for a planned elective L4-L5 decompression and fusion surgery after experiencing persistent back pain and leg pain with failed conservative treatment as an outpatient. PMH includes: HTN, NIDDM2, and BPH. Pre-op Hgb 14.5;EBL 100mL. Pre op A1C 8.9; received Decadron; anticipate hyperglycemia post op. Neurogenic claudication due to lumbar spinal stenosis: s/p L4-L5 decompression and fusion on 12/18/2023 under the care of Dr. Paiz. Per ortho for pain control, wound care, anticoagulation and activities. Monitor H&H, pre op Hgb 14.5 on 12/03; trend in AM continue incentive spirometry PT/OT when appropriate Clinically much better Labs remain unremarkable except creatinine is slightly up at 1.62 He was advised to drink more fluid His blood counts and kidney function remain unremarkable Medically stable to be discharged HTN: Chronic Takes Lisinopril; continue Remains on the upper side but reasonably stable NIDDM2: Chronic Takes Actos and Glipizide; hold while inpt and place on ACHS SSI Received Decadron which can cause hyperglycemia Most recent A1C: 8.9 on 12/03 Diabetic diet per admitting team Blood sugar remains stable BPH: Chronic Takes Tamsulosin;continue Disposition: PCP: Dr. Rm Herzog in [place] Code Status: Full Code VTE Prophylaxis: Per admitting team Admission and Anticipated Discharge Date Admission Date: December 18, 2023 Subjective 12/19/2023 The patient was seen and examined in medical floor He has been complaining some pain at the back but radiculopathic pain has been improving No chest pain and no shortness of breath and no abdominal pain nausea no vomiting 12/20/2023 The patient was seen and examined in medical floor He has been feeling much better and may be going home this afternoon Denies any significant symptoms Minimal pain at the back without radiation Review of Systems Review of Systems: All systems reviewed and are unremarkable except as noted below Physical Exam Physical Exam: Sitting on a chair without any acute distress Constitutional: well developed, well nourished and + obese; not ill appearing Eyes: PERRL, conjunctivae normal, anicteric sclerae ENMT: external ear and nose normal, oropharynx normal Neck: trachea midline, no thyromegaly Respiratory: no respiratory distress Auscultation: lungs clear to auscultation bilaterally Cardiovascular: Rate/Rhythm: regular rate and regular rhythm; not tachycardic Heart Sounds: normal S1 and normal S2; no murmur Extremities: no edema Gastrointestinal (Abdomen): Inspection/Auscultation: normal bowel sounds; abdomen not distended Percussion/Palpation: abdomen soft; abdomen nontender Musculoskeletal: Minimal back pain without radiation Neurologic: normal touch/pain/proprioception and moves all extremities; no focal motor deficits Psychiatric: A+Ox3, euthymic affect Lymphatic: no cervical or axillary lymphadenopathy Results & Data Results & Data Vital Signs (Past 12 Hours) Vital Signs Temp Pulse Pulse Resp BP BP Pulse Ox 12/20/23 11:35 37.0 C 92 H 78 17 132/75 172/76 H 99 12/20/23 07:10 37.0 C 78 17 132/75 99 O2 Del Method 12/20/23 11:35 12/20/23 07:10 Room Air Laboratory Results Short CBC 12/20/23 Range/Units 08:19 WBC 12.58 H (4.8-10.8) K/ul Hgb 12.8 L (14.0-18.0) g/dl Hct 38.6 L (42.0-52.0) % Plt Count 147 (130-400) K/uL BMP 12/20/23 08:19 Sodium 135 L Potassium 4.3 Chloride 102 Carbon Dioxide 26 BUN 45 H Creatinine 1.50 H Glucose 150 H Calcium 9.1 Medications Administered Current Inpatient Medications Acetaminophen (Acetaminophen 500 Mg Tab) 1,000 mg PO Q8H PRN PRN Reason: MILD Pain Scale 1,2,3 & Pre PT Stop: 01/17/24 11:04 Al Hydrox/Mg Hydrox/Simethicone (Aluminum/Magnesium Susp 30 Ml Udc) 30 ml PO Q6H PRN PRN Reason: Dyspepsia Stop: 01/17/24 11:04 Bisacodyl (Bisacodyl 10 Mg Supp) 10 mg OK DAILY PRN PRN Reason: Constipation Stop: 01/17/24 11:04 Diphenhydramine HCl (Diphenhydramine Capsule 25 Mg Cap) 25 mg PO Q6H PRN PRN Reason: Allergic Rhinitis/Insomnia Stop: 01/17/24 11:04 Famotidine (Famotidine 20 Mg Tab) 20 mg PO Q12H PRN PRN Reason: Dyspepsia Stop: 01/17/24 11:04 Hydromorphone HCl (Hydromorphone Inj 0.5 Mg/0.5 Ml Syr) 0.5 mg IV Q3H PRN PRN Reason: MODERATE Pain (Scale 4,5,6) & Pre PT Stop: 01/01/24 11:04 Last Admin: 12/19/23 05:31 Dose: 0.5 mg Hydromorphone HCl (Hydromorphone Inj 1 Mg/Ml Syringe) 1 mg IV Q3H PRN PRN Reason: SEVERE Pain (Scale 7,8,9,10) Stop: 01/01/24 11:04 Hydroxyzine HCl (Hydroxyzine Hcl 25 Mg Tab) 25 mg PO Q8H PRN PRN Reason: Anxiety Stop: 01/17/24 11:04 Promethazine HCl 12.5 mg/ (Sodium Chloride) 50.5 mls @ 202 mls/hr IV Q6H PRN PRN Reason: Nausea &/or Vomiting Stop: 01/17/24 11:04 Lorazepam 0.5 mg/ Syringe 0.5 mls @ 2 mls/min IV Q8H PRN; Protocol PRN Reason: Sedation/Anxiety Stop: 01/17/24 11:04 Dexamethasone 6 mg/ Syringe 1.5 mls @ 1 mls/min IV DAILY [facility] Stop: 12/21/23 09:02 Last Admin: 12/20/23 08:43 Dose: 1 mls/min Influenza Virus Vaccine Quadrival (Do Not Administer Flu Vaccine) 1 each N/A PRN PRN PRN Reason: Notification Stop: 01/17/24 11:04 Insulin Aspart (Insulin Aspart Per Unit Charge) 0 units SC ACHS [facility] Stop: 01/17/24 11:59 Last Admin: 12/20/23 12:18 Dose: 22 units Insulin Glargine (Lantus Per Unit Charge) 25 units SC BID [facility]; Protocol Stop: 01/18/24 08:59 Last Admin: 12/20/23 08:50 Dose: 25 units Lisinopril (Lisinopril 10 Mg Tab) 10 mg PO QAM [facility] Stop: 01/18/24 08:59 Last Admin: 12/20/23 08:42 Dose: 10 mg Lorazepam (Lorazepam 0.5 Mg Tab) 0.5 mg PO Q8H PRN PRN Reason: Sedation/Anxiety Stop: 01/17/24 11:04 Magnesium Hydroxide (Magnesium Hydroxide Susp 30 Ml Udc) 30 ml PO Q24H PRN PRN Reason: Constipation Stop: 01/17/24 11:04 Metoclopramide HCl (Metoclopramide Hcl Inj 5 Mg/Ml 2 Ml Vial) 10 mg IV Q6H PRN PRN Reason: Nausea &/or Vomiting Stop: 01/17/24 11:04 Miscellaneous Information (Pharmacy Glycemic Mgmt Consult) 1 each N/A UD PRN PRN Reason: Consult Stop: 01/17/24 11:04 Naloxone HCl (Naloxone Hcl 0.4 Mg/1 Ml Vial/Carp) 0.1 mg IV Q5M PRN PRN Reason: Oversedation/Resp depression Stop: 01/17/24 11:04 Ondansetron HCl (Ondansetron Inj 2 Mg/Ml 2 Ml Vial) 4 mg IV Q6H PRN PRN Reason: Nausea &/or Vomiting Stop: 01/17/24 11:04 Ondansetron HCl (Ondansetron 4 Mg Od Tab) 4 mg PO Q6H PRN PRN Reason: Nausea Stop: 01/17/24 11:04 Oxycodone HCl (Oxycodone Hcl Ir 5 Mg Tab (Immediate Release)) 5 - 10 mg PO Q4H PRN PRN Reason: Pain & Pre PT Stop: 01/01/24 11:04 Last Admin: 12/20/23 13:24 Dose: 10 mg Pneumococcal Polyvalent Vaccine (Do Not Administer Pneumococcal Vaccine) 1 each N/A PRN PRN PRN Reason: Notification Stop: 01/17/24 11:04 Senna/Docusate Sodium (Docusate Sodium/Senna 50/8.6mg Tab) 2 tab PO HS [facility] Stop: 01/17/24 20:59 Last Admin: 12/19/23 21:43 Dose: Not Given Sodium Biphosphate/Sodium Phosphate (Sod Phosphate/Sod Biphosphate Enema 132 Ml Btl) 132 ml OK ONE PRN PRN Reason: Constipation Stop: 01/17/24 11:04 Tamsulosin HCl (Tamsulosin Hcl 0.4 Mg Cap) 0.8 mg PO HS KATHY Stop: 01/17/24 20:59 Last Admin: 12/19/23 21:44 Dose: 0.8 mg Tramadol HCl (Tramadol Hcl 50 Mg Tablet) 50 - 100 mg PO Q4H PRN PRN Reason: Moderate-Severe pain & Pre PT Stop: 01/17/24 11:04
== END 2023-12-20 15:35 | disposition home or self-care (01) | DRG 454 ==
LOC: ASU 05:47 → 3E 09:46

== ENCOUNTER 2023-12-31 13:56 | Inpatient (IN) ==
[2023-12-31 15:14] LABS: Basophils # (auto) 0.02 K/uL (0.00-0.20); Basophils % (auto) 0.3 %; Eosinophils % (auto) 1.4 %; Hematocrit (blood only) 39.9 % (42.0-52.0); Hemoglobin 12.7 g/dl (14.0-18.0); Immature Granulocytes # (auto) 0.06 K/uL (0.01-0.20); Immature Granulocytes % (auto) 0.9 %; Lymphocytes % (auto) 23.2 %; Mean Corpuscular Hemoglobin 28.2 pg (25.0-34.0); Mean Corpuscular Hgb Conc 31.8 g/dL (32.0-36.0); Mean Corpuscular Volume 88.7 fL (80.0-100.0); Monocytes # (auto) 0.84 K/uL (0.11-0.59); Monocytes % (auto) 12.2 %; Neutrophils # (auto) 4.28 K/uL (1.40-6.50); Platelet Count 290 K/uL (130-400); RDW Coefficient of Variation 13.4 % (11.5-14.5); RDW Standard Deviation 43.5 fL (36.4-46.3)
[2023-12-31 15:28] LABS: Partial Thromboplastin Ratio 0.9; Partial Thromboplastin Time 24 Seconds (21-31); Prothrombin Time 10.8 Seconds (9.0-12.0)
[2023-12-31 15:29] LABS: Alanine Aminotransferase 23 U/L (7-52); Albumin Globulin Ratio 1.1 (0.9-2); Albumin Level 3.8 gm/dl (3.4-5.0); Alkaline Phosphatase 137 U/L (34-104); Anion Gap 8 (3-11); Aspartate Aminotransferase 31 U/L (13-39); BUN Creatinine Ratio 22.8 (10-20); Bilirubin,Total 0.4 mg/dl (0.2-1.0); Blood Urea Nitrogen 28 mg/dl (6-23); Carbon Dioxide 24 mmol/L (21-32); Chloride 104 mmol/L (98-107); Est GFR (African American) 69.5 ml/min; Est GFR (Non-African American) 59.9 ml/min; Globulin 3.5 gm/dl (2.5-4.0); Glucose 234 mg/dl (70-99(Fasting)); Potassium 4.4 mmol/L (3.5-5.1); Sodium 136 mmol/L (136-145); Total Protein 7.3 gm/dl (6.0-8.3)
[2023-12-31 15:35] LABS: Troponin I High Sensitivity 11.6 pg/ml (0-20)
--- NOTE | 2023-12-31 15:57 | XRay Report ---
XR chest 1V not portable CLINICAL HISTORY: Chest pain, nonspecific COMPARISON STUDY: Chest radiograph December 04, 2023. FINDINGS: Lung volumes are normal. Lungs are clear. There is no pneumothorax or pleural effusion. Mod erate cardiomegaly is unchanged. Mediastinal contours are normal. There is no evidence for pulmonary edema. IMPRESSION: No acute cardiopulmonary findings. Cardiomegaly. ACT 112: Negative or not required by law. Electronically signed by: Juan Miguel Reddy M.D. 12/31/2023 3:56 PM
--- NOTE | 2023-12-31 16:10 | Emergency Department Note ---
Impression & Plan Leg swelling, Cellulitis in diabetic foot, History of back surgery ED Provider Note Provider: Juan Reynolds MD DATE OF SERVICE: 12/31/2023 CHIEF COMPLAINT: Legs swelling, seeping HISTORY OF PRESENT ILLNESS: Patient is a 68-year-old gentleman history of hypertension and diabetes status post back surgery on December [address] Paiz. Lumbar decompression and fasciotomies at that time with fusion who since the procedure as noted swelling began in the bilateral legs and to the toes. Really just started since yesterday. No shortness of breath reported no history of swelling similar this reported. Denies any heart history. Not on diuretics. Denies significant redness to the legs. No trauma reported or fever. Reportedly has not really been able to lay down or ambulate since ran out of pain medicine last week. Is to follow-up with Dr. Paiz in 2 days but now developed the swelling. PAST MEDICAL HISTORY: As noted above MEDICATIONS: Reviewed home medications SOCIAL HISTORY: PHYSICAL EXAM: GENERAL: alert and oriented in no acute distress in wheelchair in room Head: normocephalic and atraumatic EYES: No injection, discharge or icterus. NECK: Trachea midline. ENT: Mucous membranes pink and moist. LUNGS: Airway patent. No retractions or tachypnea HEART: Regular rate and rhythm. No chest wall tenderness ABDOMEN: Soft and non-tender, without guarding or rebound. No masses appreciated BACK: No midline tenderness with Steri-Strips in place but surgical back wound appears well-approximated without erythema or fluctuance SKIN: Acyanotic, warm, dry, scattered erythema and small ulcerations of the bilateral lower extremity and feet EXTREMITIES: Without swelling, tenderness or deformity of the upper extremities but bilateral lower extremities without erythema but significant NEUROLOGICAL: No focal deficits. No aphasia. No facial droop or slurred speech. Normal strength and tone in the extremities. Sensation to gross touch normal. EK beats per minute. Normal sinus rhythm. No PVC or PAC. No acute ST segment elevation or depression with a QTc of 425. CONTINUOUS CARDIAC MONITORING: was ordered and showed a heart rate of 70s-80s bpm in NSR Patient's laboratory studies and imaging reviewed. Differential includes DVT, musculoskeletal, infection, joint effusion, trauma, lymphedema, idiopathic, CHF, liver dysfunction, as well as other pathologies. IMPRESSION/MEDICAL DECISION MAKING: Patient history of hypertension and diabetes without a history of CHF. Output normal. No evidence of significant pulmonary edema per radiology report of the chest x-ray. Basic labs obtained here without significant leukocytosis or severe anemia. No significant electrolyte abnormality with stable renal function. BNP not elevated. Troponin normal and EKG without significant arrhythmia. Ultrasound of the lower extremities obtained to exclude DVT. Patient with significant pain and only and able to tolerate ultrasound of the right lower extremity and only limited fashion. Given some IV pain medication. Discussed with him the need to complete evaluation with imaging and certainly with his significant amount of swelling I do not feel he is going to be able to ambulate and will be able to recover at home and likely need rehab after this back surgery with this swelling issue. I will give a little bit of Lasix for diuresis. Believe some component of cellulitis on these wounds and are not severe will cover with Ancef and discussion with pharmacist at this point. Doubt it is Pseudomonas at this point. Does not appear septic. Again doubt particular back surgery failure or infection or hematoma at this point. Not having significant respiratory issues or tachycardia and doubt PE. Patient agreeable to come in for further treatment and hospitalist contacted. DIAGNOSIS: Bilateral leg swelling, diabetic feet cellulitis, recent back surgery DISPOSITION: Hospitalist will evaluate Patient was agreeable with this plan. Past Med/Surg History Medical History (Updated 12/31/23 @ 22:08 by Juan Reynolds M.D.) Hypertension Diabetes mellitus, type 2 NIDDM BPH (benign prostatic hyperplasia) Low back pain Surgical History (Updated 12/31/23 @ 22:08 by Juan Reynolds M.D.) History of MRI MRI lumbar spine without contrast (10/26/23): MAC at [facility] History of right knee surgery right menicus repair Hx of rotator cuff surgery right History of colonoscopy History of tonsillectomy Social History Smoking Status: Current every day smoker Tobacco Type: Smokeless Tobacco (Dip or Chew) Second Hand Exposure: Yes ( smokes); Do You Dip or Chew Tobacco: Yes; Hx Alcohol Use: No Hx Substance Use: No Preferred Language: Telugu Communication Ability: Effective Drying Machine Tender Required: No Beliefs That Will Affect Care: None Current Living Situation: Spouse Current Living Situation Comment: home Feels Safe at Home: Yes Safety Concerns: Feels Safe At This Time Assistive Devices: None Assistive Devices Comment: pt has been using walker since surgery 2 weeks ago Allergies Allergies Allergy/AdvReac Type Severity Reaction Status Date / Time No Known Allergies Allergy Verified 12/31/23 17:22 Home Meds Home Medications Medication Instructions Recorded Confirmed glipizide 5 mg tablet 5 mg PO BID 10/18/23 12/31/23 lisinopril 10 mg tablet 10 mg PO QAM 10/18/23 12/31/23 pioglitazone 45 mg tablet 45 mg PO QAM 10/18/23 12/31/23 tamsulosin 0.4 mg capsule 0.8 mg PO HS 10/18/23 12/31/23 Previous Rx's Medication Instructions Recorded oxycodone 5 mg tablet 5 mg PO Q6H PRN pain #30 tabs 12/18/23 tramadol 50 mg tablet 50 mg PO Q6H PRN pain, moderate 12/18/23 #30 tabs Results & Data (ED) Vital Signs Vital Signs - 24 hr 12/31/23 14:04 12/31/23 16:01 12/31/23 16:01 Temperature 36.3 C L Temperature Source Temporal Artery Scan Pulse Rate 81 Pulse Rate [Finger] 79 Pulse Rhythm Regular Pulse Strength Normal Respiratory Rate 20 18 Respiratory Effort / Characteristics Non-Labored Spontaneous Non-Labored Spontaneous Respiratory Depth Normal Normal Respiratory Pattern Regular Regular Blood Pressure 176/80 H Blood Pressure [Right Arm] 165/86 H Blood Pressure Mean 112 Blood Pressure Mean [Right Arm] 112 Blood Pressure Position Sitting Blood Pressure Position [Right Arm] Lying Pulse Oximetry 98 98 98 Oxygen Delivery Method Room Air Room Air Room Air Sepsis Recent Fever Within 48 Hours No Sepsis New/Unexplained Change in Mental Status No Sepsis Action Taken by Nursing No Action Required Laboratory Data 12/31/23 14:44 12/31/23 14:44 Lab Results 12/31/23 Range/Units 14:44 WBC 6.90 (4.8-10.8) K/ul RBC 4.50 L (4.70-6.10) M/uL Hgb 12.7 L (14.0-18.0) g/dl Hct 39.9 L (42.0-52.0) % MCV 88.7 (80.0-100.0) fL MCH 28.2 (25.0-34.0) pg MCHC 31.8 L (32.0-36.0) g/dL RDW Std Deviation 43.5 (36.4-46.3) fL RDW Coeff of [place] 13.4 (11.5-14.5) % Plt Count 290 (130-400) K/uL MPV 10.0 (9.4-12.4) fL Immature Gran % (Auto) 0.9 % Neut % (Auto) 62.0 % Lymph % (Auto) 23.2 % [place] % (Auto) 12.2 % Eos % (Auto) 1.4 % Baso % (Auto) 0.3 % Neut # (Auto) 4.28 (1.40-6.50) K/uL Lymph # (Auto) 1.60 (1.20-3.40) K/uL [place] # (Auto) 0.84 H (0.11-0.59) K/uL Eos # (Auto) 0.10 (0.00-0.50) K/uL Baso # (Auto) 0.02 (0.00-0.20) K/uL Immature Gran # (Auto) 0.06 (0.01-0.20) K/uL PT 10.8 (9.0-12.0) Seconds INR 1.0 (0.9-1.1) APTT 24 (21-31) Seconds PTT Ratio 0.9 Sodium 136 (136-145) mmol/L Potassium 4.4 (3.5-5.1) mmol/L Chloride 104 (98-107) mmol/L Carbon Dioxide 24 (21-32) mmol/L Anion Gap 8 (3-11) BUN 28 H (6-23) mg/dl Creatinine 1.23 (0.6-1.4) mg/dl Est Cr Clr Drug Dosing Not Reportable Est GFR ( Amer) 69.5 ml/min Est GFR (Non-Af Amer) 59.9 ml/min BUN/Creatinine Ratio 22.8 H (10-20) Glucose 234 H (70-99(Fasting)) mg/dl Calcium 9.0 (8.6-10.3) mg/dl Total Bilirubin 0.4 (0.2-1.0) mg/dl AST 31 (13-39) U/L ALT 23 (7-52) U/L Alkaline Phosphatase 137 H (34-104) U/L Troponin I High Sens 11.6 (0-20) pg/ml B-Natriuretic Peptide 28 (0-100) pg/ml Total Protein 7.3 (6.0-8.3) gm/dl Albumin 3.8 (3.4-5.0) gm/dl Globulin 3.5 (2.5-4.0) gm/dl Albumin/Globulin Ratio 1.1 (0.9-2) Administered Medications Cyclobenzaprine HCl (Cyclobenzaprine Hcl 5 Mg Tab) 5 mg PO TID KATHY Stop: 01/30/24 20:59 Last Admin: 12/31/23 21:55 Dose: 5 mg Documented By: LEONEL Miscellaneous (Patient's Weight Needed) 1 each N/A Q2H KATHY Stop: 01/30/24 20:14 Last Admin: 12/31/23 21:55 Dose: Not Given Documented By: LEONEL Tamsulosin HCl (Tamsulosin Hcl 0.4 Mg Cap) 0.8 mg PO HS KATHY Stop: 01/30/24 20:59 Last Admin: 12/31/23 21:55 Dose: 0.8 mg Documented By: LEONEL Discontinued Medications Cyclobenzaprine HCl (Cyclobenzaprine Hcl 5 Mg Tab) 5 mg PO NOW STA Stop: 12/31/23 18:16 Last Admin: 12/31/23 19:26 Dose: 5 mg Documented By: LEONEL Furosemide (Furosemide Inj 20 Mg/2 Ml Vial) 20 mg IV ONE ONE Stop: 12/31/23 17:10 Last Admin: 12/31/23 17:35 Dose: 20 mg Documented By: LEONEL Cefazolin Sodium (Ancef 2000mg) 2,000 mg in 15 mls @ 3.75 mls/min IV NOW STA Stop: 12/31/23 17:12 Last Admin: 12/31/23 19:26 Dose: 3.75 mls/min Documented By: LEONEL Morphine Sulfate (Morphine Sulfate 4 Mg/Ml 1 Ml Carp\Vial) 4 mg IV NOW STA Stop: 12/31/23 17:10 Last Admin: 12/31/23 17:35 Dose: 4 mg Documented By: LEONEL Imaging Data Radiologist's Impression: Chest X-Ray 12/31/23 14:07 XR chest 1V not portable CLINICAL HISTORY: Chest pain, nonspecific COMPARISON STUDY: Chest radiograph December 04, 2023. FINDINGS: Lung volumes are normal. Lungs are clear. There is no pneumothorax or pleural effusion. Moderate cardiomegaly is unchanged. Mediastinal contours are normal. There is no evidence for pulmonary edema. IMPRESSION: No acute cardiopulmonary findings. Cardiomegaly. ACT 112: Negative or not required by law. Electronically signed by: Juan Miguel Reddy M.D. 12/31/2023 3:56 PM Venous Doppler Study 12/31/23 15:26 US venous doppler LE RT CLINICAL HISTORY: swelling TECHNIQUE: Right lower extremity real-time compression venous ultrasound with Color Doppler imaging. Utilizing real-time ultrasonic imaging multiple real time high-resolution ultrasonic images with compression and noncompression maneuvers of the deep venous system in addition to color doppler imaging were performed from the common femoral vein through the proximal calf veins. COMPARISON: None available at the time of this dictation. FINDINGS/IMPRESSION: Exam is limited but no DVT is seen. The left leg could not be evaluated due to patient intolerance. Right greater saphenous vein, profunda, peroneal, and anterior tibial veins were not visualized. Soft tissue edema is noted in the leg. ACT 112: Negative or not required by law. Electronically signed by: Teddy King M.D. 12/31/2023 4:58 PM Discharge Plan Visit Data Chief Complaint: Swelling/Edema to Extremity Stated Complaint: SWELLING ON BOTH LEGS ED Provider: Juan Reynolds Discharge Problem: Leg swelling, Cellulitis in diabetic foot, History of back surgery Patient Disposition: Admitted As Inpatient Discharge Instructions Interventions: ED Discharge Assessment Last Done: 12/31/23 20:03
--- NOTE | 2023-12-31 16:59 | Ultrasound Report ---
US venous doppler LE RT CLINICAL HISTORY: swelling TECHNIQUE: Right lower extremity real-time compression venous ultrasound with Color Doppler imaging. Utilizing real-time ultrasonic imaging multiple real time high-resolution ultrasonic images with comp ression and noncompression maneuvers of the deep venous system in addition to color doppler imaging w ere performed from the common femoral vein through the proximal calf veins. COMPARISON: None available at the time of this dictation. FINDINGS/IMPRESSION: Exam is limited but no DVT is seen. The left leg could not be evaluated due to patient intolerance. R ight greater saphenous vein, profunda, peroneal, and anterior tibial veins were not visualized. Soft tissue edema is noted in the leg. ACT 112: Negative or not required by law. Electronically signed by: Teddy King M.D. 12/31/2023 4:58 PM
[2023-12-31] MEDS: MoRPHine SULFATE 4 MG/ML 1 ML CARP\\VIAL IV STA (17:35)
[2023-12-31] MEDS: FUROSEMIDE INJ 20 MG/2 ML VIAL IV ONE (17:35)
--- NOTE | 2023-12-31 17:36 | History & Physical Report ---
Date of Service December 31, 2023 Assessment & Plan (1) Status post lumbar spine surgery for decompression of spinal cord: (2) Stasis edema with ulcer of both lower extremities: (3) Diabetes mellitus, type 2: (4) Hypertension: Plan This is a 68-year-old male has significant past medical history of T2DM, HTN, BPH who follows with family practice in [place]. Of significance he was recently hospitalized on 12/17 to 12/19 and underwent an elective lumbar surgical procedure with Dr. Paiz. He underwent an L4-L5 lumbar decompression and fusion and tolerated the procedure well. Patient's postoperative course since discharge has been complicated with ambulatory dysfunction secondary to low back pain and muscle spasm and mostly being in the seated position due to inability to lay flat in bed. Due to lack of mobility and dependent nature of edema he had significant difficulty ambulating. Status post L4-L5 lumbar decompression fusion on 12/18/[address] Paiz Bilateral lower extremity stasis edema with ulceration Admit to telemetry Obtain echocardiogram, unknown baseline BNP unremarkable, possible component of CHF Feel this is likely mostly dependent in nature Continue IV Lasix 20 mg daily, may need to increase based on patient's response although he is Lasix reinier Strict intake and output Low-sodium heart healthy diet Consult wound care for stasis ulcerations as well as toe ulceration He received IV Ancef in ED, he is afebrile without leukocytosis, I do not feel he has active cellulitis at this time although he is definitely at risk for this Ambulatory dysfunction low back pain in setting of recent surgery PT/OT prn tylenol, OXY IR will schedule flexeril 5mg TID due to c/o muscle spasm incision is healing well HTN: Chronic Takes Lisinopril; continue NIDDM2: Chronic Takes Actos and Glipizide; hold while inpt and place on ACHS SSI Most recent A1C: 8.9 on 12/03 BPH: Chronic Takes Tamsulosin;continue Dispo: admit to tele PCP: Dr. Rm Herzog in [place] Code Status: Full Code VTE Prophylaxis: Lovenox Patient was seen and examined in collaboration with, Dr. Gleason, please see addendum A total of 76 minutes was spent coordinating, documenting, and providing care for this patient excluding time spent in the performance of separately billed services. This included personally viewing all current laboratories and imaging studies, medication reconciliation, outpatient chart review, and discussion with specialists. History of Present Illness Chief Complaint: Lower extremity swelling and pain. Primary Care Provider: Rm Tsang Capp, DO This is a 68-year-old male has significant past medical history of T2DM, HTN, BPH who follows with family practice in [place]. Of significance he was recently hospitalized on 12/17 to 12/19 and underwent an elective lumbar surgical procedure with Dr. Paiz. He underwent an L4-L5 lumbar decompression and fusion and tolerated the procedure well. His postoperative course was unremarkable. He was discharged to home. He presents back to ED today secondary to Bilateral lower extremity swelling. He states that the swelling started approximately 2 days ago. He reports being discharged December 19 after leon ving back surgery. Since being discharged home he has been having increased pain to his low back. He specifically describes his pain as, "spasms." When it comes on is very sharp and shooting and rated a 20 out of 10. He has run out of his oxycodone. Due to pain he has been mostly immobile sitting in an upright position. He is unable to lay flat due to pain. Since being discharged his legs have mostly been dependent the entire time. He has noted increased swelling to his lower extremities. He reports approximately 50 pound weight gain over the last 6 months since dealing with his lower back, but is unaware of any recent weight gain with the swelling. He is having clear fluid seep from his legs as well as some openings to his anterior aspect of his valenzuela as well as his toes due to the swelling. Due to increased swelling and pain he opted to present to ED. He denies any history of CHF. He denies any fever, chills, sweats, chest pain, shortness of breath, orthopnea, PND, nausea, vomiting, abdominal pain or changes bowel or urinary habits. In ED he remained hemodynamically stable although he was slightly hypertensive. His lab work was mostly unremarkable with an H&H stable at 12.7 and 39.9 and a creatinine of 1.23. He was hyperglycemic with a blood sugar of 234. He states all he ate today was an egg salad sandwich. Allergies Allergy/AdvReac Type Severity Reaction Status Date / Time No Known Allergies Allergy Verified 12/31/23 17:22 Home Medications Medication Instructions Recorded Confirmed Type glipizide 5 mg tablet 5 mg PO BID 10/18/23 12/31/23 History lisinopril 10 mg tablet 10 mg PO QAM 10/18/23 12/31/23 History pioglitazone 45 mg tablet 45 mg PO QAM 10/18/23 12/31/23 History tamsulosin 0.4 mg capsule 0.8 mg PO HS 10/18/23 12/31/23 History oxycodone 5 mg tablet 5 mg PO Q6H PRN pain #30 tabs 12/18/23 12/31/23 Rx tramadol 50 mg tablet 50 mg PO Q6H PRN pain, moderate 12/18/23 12/31/23 Rx #30 tabs Past Med/Surg History Medical History (Updated 12/31/23 @ 18:19 by Leonela Palencia PA-C) Hypertension Diabetes mellitus, type 2 NIDDM BPH (benign prostatic hyperplasia) Low back pain Surgical History (Updated 12/31/23 @ 18:19 by Leonela Palencia PA-C) History of MRI MRI lumbar spine without contrast (10/26/23): MAC at [facility] History of right knee surgery right menicus repair Hx of rotator cuff surgery right History of colonoscopy History of tonsillectomy Social History Smoking Status: Current every day smoker Tobacco Type: Smokeless Tobacco (Dip or Chew) Second Hand Exposure: Yes ( smokes); Do You Dip or Chew Tobacco: Yes; Hx Alcohol Use: No Hx Substance Use: No Preferred Language: Turkmen Communication Ability: Effective Director Of Media Required: No Beliefs That Will Affect Care: None Current Living Situation: Spouse Current Living Situation Comment: home Feels Safe at Home: Yes Safety Concerns: Feels Safe At This Time Assistive Devices: None Assistive Devices Comment: pt has been using walker since surgery 2 weeks ago Review of Systems Review of Systems: All systems reviewed & are unremarkable except as noted in HPI & below Physical Exam Physical Exam: Constitutional: Obese, M, sitting in bedside chair, vitals as above, NAD, Eyes: PERRL, conjunctivae normal, anicteric sclerae ENMT: external ear and nose normal, oropharynx normal Neck: trachea midline, no thyromegaly normal visual inspection Respiratory: normal respiratory effort, lungs clear to auscultation, no wheeze, rales, rhonchi. Normal insp/exp effort, no accessory muscle use Cardiovascular: RRR, no murmur, +3 lower extremity edema extending up to proximal thigh, no confluent erythema but evidence of bulla ruputure from swelling as well as unkempt toes/ulcer to dorsal aspect of toes seeping clear drainage Vessels: no JVD or carotid bruit Chest: normal inspection of chest Abdomen: protuberant abd, normal bowel sounds, soft, nontender, no hepatosplenomegaly Musculoskeletal: no cyanosis or clubbing, extremities motor strength 5/5 Skin: no rashes, warm and dry normal turgor , lumbar incision healing well, no surrounding erythema Neurologic: PERRL, EOMI, accommodation nl, no face palsy, no dysarthria CN's II-XI intact bilaterally and moves all extremities Psychiatric: A+Ox3, euthymic affect Lymphatic: no cervical or axillary lymphadenopathy : deferred Results & Data Results & Data Vital Signs (Past 12 Hours) Vital Signs Temp Pulse Pulse Resp BP BP Pulse Ox 12/31/23 16:01 98 12/31/23 16:01 79 18 165/86 H 98 12/31/23 14:04 36.3 C L 81 20 176/80 H 98 O2 Del Method 12/31/23 16:01 Room Air 12/31/23 16:01 Room Air 12/31/23 14:04 Room Air Diagnostic Findings Chest X-Ray 12/31/23 14:07 XR chest 1V not portable CLINICAL HISTORY: Chest pain, nonspecific COMPARISON STUDY: Chest radiograph December 04, 2023. FINDINGS: Lung volumes are normal. Lungs are clear. There is no pneumothorax or pleural effusion. Moderate cardiomegaly is unchanged. Mediastinal contours are normal. There is no evidence for pulmonary edema. IMPRESSION: No acute cardiopulmonary findings. Cardiomegaly. ACT 112: Negative or not required by law. Electronically signed by: Juan Miguel Reddy M.D. 12/31/2023 3:56 PM Venous Doppler Study 12/31/23 15:26 US venous doppler LE RT CLINICAL HISTORY: swelling TECHNIQUE: Right lower extremity real-time compression venous ultrasound with Color Doppler imaging. Utilizing real-time ultrasonic imaging multiple real time high-resolution ultrasonic images with compression and noncompression maneuvers of the deep venous system in addition to color doppler imaging were performed from the common femoral vein through the proximal calf veins. COMPARISON: None available at the time of this dictation. FINDINGS/IMPRESSION: Exam is limited but no DVT is seen. The left leg could not be evaluated due to patient intolerance. Right greater saphenous vein, profunda, peroneal, and anterior tibial veins were not visualized. Soft tissue edema is noted in the leg. ACT 112: Negative or not required by law. Electronically signed by: Teddy King M.D. 12/31/2023 4:58 PM Medications Administered Medication List Discontinued Medications Furosemide (Furosemide Inj 20 Mg/2 Ml Vial) 20 mg IV ONE ONE Stop: 12/31/23 17:10 Last Admin: 12/31/23 17:35 Dose: 20 mg Documented By: LEONEL Morphine Sulfate (Morphine Sulfate 4 Mg/Ml 1 Ml Carp\\Vial) 4 mg IV NOW STA Stop: 12/31/23 17:10 Last Admin: 12/31/23 17:35 Dose: 4 mg Documented By: LEONEL ECG Rate (beats per minute): 84 Rhythm: normal sinus Additional Comments: I have independently reviewed and interpreted patient's admitting EKG which revealed: 84 NSR, No ST or t wave change Code Status & VTE Plan Code Status FULL CODE VTE Prophylaxis Plan VTE Prophylaxis will be ordered: Yes Supervising Physician Co-Signing Physician Notes I have seen and examined the patient and have discussed the case with the provider above. I have reviewed the advanced practitioner's documentation, and I agree with, and take responsibility for that plan of care. 68 yo M presents with lower leg swelling x 1 day. He is a morbidly obese man who recently underwent a lower back surgery which has limited his movement. His back incision appears to be healing well and the patient denies any pain with this. Although he is not reporting shortness of breath with exertion and his CXR is clear, I am concerned about the development of early heart failure in the setting of pioglitazone use. Will obtain echo and agree with lasix at this time. Multiple wounds on toes and lower legs appear more chronic and will have [facility] evaluate these further. They do not appear infected and I agree he doesn't have evidence of cellulitis at this time and to avoid antibiotics. Would recommend stopping pioglitazone and considering an alternative therapy. Recent A1C is 8.9. May need to consider Lantus or even Ozempic given his obesity. Will defer to discharging physician. Flexeril trial for muscle spasms. Brooks, DO
[2023-12-31] MEDS: ceFAZolin 2000MG 2,000 MG/15 ML SYR IV STA (19:26)
[2023-12-31] MEDS: CYCLOBENZAPRINE HCL 5 MG TAB PO STA (19:26)
[2023-12-31] MEDS ORDERED: GLUCOSE 40% GEL 15 GM TUBE PO PRN (20:01)
[2023-12-31] MEDS ORDERED: oxyCODONE HCL IR 5 MG TAB (IMMEDIATE RELEASE) PO PRN (20:01)
[2023-12-31] MEDS ORDERED: DEXTROSE 50% 50 ML SYRINGE IV PRN (20:01)
[2023-12-31] MEDS ORDERED: GLUCOSE 10 TAB/TUBE PO PRN (20:01)
[2023-12-31] MEDS ORDERED: GLUCAGON FOR INJ 1 MG VIAL SQ PRN (20:01)
[2023-12-31] MEDS ORDERED: CARBOHYDRATES FOR HYPOGLYCEMIA PO PRN (20:01)
[2023-12-31] MEDS: CYCLOBENZAPRINE HCL 5 MG TAB PO SCH (21:55)
[2023-12-31] MEDS: TAMSULOSIN HCL 0.4 MG CAP PO SCH (21:55)
[2023-12-31] MEDS: Patient's WEIGHT Needed SCH (21:55)
[2023-12-31] MEDS: INSULIN ASPART PER UNIT CHARGE SC SCH (22:04)
[2023-12-31] MEDS: LANTUS PER UNIT CHARGE SQ SCH (22:04)
[2024-01-01] MEDS ORDERED: MoRPHine SULFATE 4 MG/ML 1 ML CARP\\VIAL IV PRN (00:49)
[2024-01-01] MEDS: LIDOCAINE 5% 1 PATCH TD SCH (01:44)
[2024-01-01] MEDS: CYCLOBENZAPRINE HCL 5 MG TAB PO STA (01:44)
--- NOTE | 2024-01-01 06:23 | Electrocardiogram Report ---
Test Reason : Blood Pressure : / mmHG Vent. Rate : 084 BPM Atrial Rate : 084 BPM P-R Int : 146 ms QRS Dur : 088 ms QT Int : 360 ms P-R-T Axes : 040 -29 000 degrees QTc Int : 425 ms Normal sinus rhythm Low voltage QRS Cannot rule out Anterior infarct , age undetermined Abnormal ECG When compared with ECG of 04-DEC-2023 13:43, No significant change was found Confirmed by Barry Holley ([id number]) on 01/01/2024 6:23:00 AM Referred By: Confirmed By:Barry Holley
[2024-01-01] MEDS: oxyCODONE HCL IR 5 MG TAB (IMMEDIATE RELEASE) PO PRN (08:22)
[2024-01-01] MEDS: lisinopril 10 MG TAB PO SCH (08:22)
[2024-01-01] MEDS: BACLOFEN 10 MG TAB PO PRN (08:22)
[2024-01-01] MEDS: ENOXAPARIN INJ 40 MG/0.4 ML SYR SQ SCH (08:22)
[2024-01-01] MEDS: MAGNESIUM SULFATE / D5W 1 GM/100 ML BAG IV ONE (08:23)
[2024-01-01] MEDS: FUROSEMIDE INJ 20 MG/2 ML VIAL IV SCH (08:23)
--- OUTSIDE RECORDS SUMMARY | 2024-01-01 08:33 | External Medical Summary ---
Author Name Unknown Address Unknown Organization [id number]:[facility] [place] - [address] [place] [address] Ave. [facility] [address] Laboratory Report Ordering Provider Test Date Status BALA SNYDRE 12/29/2023 11:33:09 Final Observation Date Value Abnormality Reference (Units) Status Streptococcus pyogenes DNA [Presence] in Throat by ENMA with probe detection 12/29/2023 11:33:09 Negative. No Group A Streptococcus detected by PCR (amplified probe). Negative Final This test was developed and its performance characteristics determined by [facility]. It has not been cleared or approved by the FDA. The laboratory is regulated under CLIA as qualified to perform high- complexity testing. This test is used for clinical purposes. It should not be regarded as investigational or for research. Performing Location [facility] [place] - [facility] [address] [facility] [address] [facility] [address]
--- OUTSIDE RECORDS SUMMARY | 2024-01-01 08:33 | External Medical Summary | Summary of Care ---
Author Name Unknown Organization [facility] Address [address] [facility] [place] [address] Phone [phone] Care Team Providers Care Accounting File Clerk Name Role Phone Cholo Varela MD Primary Care Provider +1- [phone] Encounter Details Date Type Department Care Team (Late st Contact Info) Description 12/31/2023 Population Health External Data Unspecified Department Allergies No known active allergiesdocumented as of this encounter (statuses as of 12/31/2023) Medications Medication Sig Dispensed Refills Start Date End Date Status Tamsulosin HCl 0.4 MG Oral Capsule (Flomax) 2 Capsules. 0 10/18/2023 Ac tive Pioglitazone HCl 45 MG Oral Tablet (Actos) 1 Tablet. 0 10/18/2023 Activ e glipiZIDE 5 MG Oral Tablet (Glucotrol) 1 Tablet. 0 10/18/2023 Active Lisinopril 10 MG Oral Tablet (Prinivil) 1 Tablet. 0 10/18/2023 Active Naproxen Sodium 220 MG Oral Tablet (Aleve) Take by mouth. 0 A ctive documented as of this encounter (statuses as of 12/31/2023) Active Problems No known active problems documented as of this encounter (statuses as of 12/31/2023) Immunizations Name Administration Dates Next Due TD - Tetanus/Diptheria (ADULT) 09/27/2006 documented as of this encounter Social History Tobacco Use Types Packs/Day Years Used Date Smoking Tobacco: Never Cigarettes 30 Smokeless Tobacco: Current Snuff Alcohol Use Standard Drinks/Week Comments No 0 (1 standard drink = 0.6 oz pur e alcohol) Sex and Gender Information Value Date Recorded Sex Assigned at Not on file Gender Identity Not on file Sexual Orientation Not on file Job Start Date Occupation Industry Not on file Not on file Not on file documented as of this encounter Plan of Treatment Health Maintenance Due Date Last Done Comments Depression Screening 1967 Hepatitis C Screening 1973 Cologuard 01/24/2000 Sigmoidoscopy 01/24/2000 Zoster Vaccines (1 of 2) 2005 DTaP,Tdap,and Td Vaccines (1 - Tdap) 09/28/2006 09/27/2006 Fecal Occult Blood Test 01/04/2010 01/04/2009 Lipid Panel 01/05/2014 01/05/2009 Colonoscopy 02/15/2019 02/15/2009 Colorectal Cancer Screening 02/15/2019 Pneumococcal Vaccine: 65+ Ye ars (1 of 1 - PCV) 01/24/2020 COVID-19 Vaccine ( - 2022-2 4 season) 2023 Influenza Vaccine (FLU shot) (Season Ended) 2024 GARDASIL-HPV IMMUNIZATION SERIES Aged Out No longer eligible based on patient's age to complete this topic Hepatitis B Aged Out No longer eligi ble based on patient's age to complete this topic MENINGOCOCCAL (MENACTRA/MENVEO) Aged Out No longer eligible based on patient's age to complete this topic documented as of this encounter Medical Devices Not on filedocumented as of this encounter Care Teams Accounting File Clerk Relationship Specialty Start Date End Date Cholo Varela MD [address] [place], [place] [id number] PCP - General Family Medicine 07/01/16 documented as of this encounter
--- OUTSIDE RECORDS SUMMARY | 2024-01-01 08:33 | External Medical Summary | Summary of Care ---
Author Name Unknown Organization [facility] Address [address] [facility] [place] [address] Phone [phone] Care Team Providers Care Fruit Receiver Name Role Phone Cholo Varela MD Primary Care Provider +1- [phone] Reason for Visit * Reason Comments Thrush Encounter Details Date Type Department Care Team (Latest Contact Info) Description 12/29/2023 10:40 AM EDT [facility] [place] [address] [facility] [address] [place] [address] Pat Lee PA-C [address] [facility] [address] [place] [address] Acute pharyngitis, unspecified etiology* Allergies No known active allergiesdocumented as of this encounter (statuses as of 12/29/2023) Medications Medication Sig Dispensed Refills Start Date End Date Status Tamsulosin HCl 0.4 MG Oral Capsule (Flomax) 2 Capsules. 0 10/18/2023 Active Pioglitazone HCl 45 MG Oral Tablet (Actos) 1 Tablet. 0 10/18/2023 Active glipiZIDE 5 MG Oral Tablet (Glucotrol) 1 Tablet. 0 10/18/2023 Active Lisinopril 10 MG Oral Tablet (Prinivil) 1 Tablet. 0 10/18/2023 Active Naproxen Sodium 220 MG Oral Tablet (Aleve) Take by mouth. 0 Active metFORMIN (GLUCOPHAGE) 500 MG Tablet Take 1 Tab by mouth 2 times a day with morning and evening meals. 60 Tab 5 10/19/2016 12/29/2023 Discontinued documented as of this encounter (statuses as of 12/29/2023) Active Problems No known active problems documented as of this encounter (statuses as of 12/29/2023) Immunizations Name Administration Dates Next Due TD - Tetanus/Diptheria (ADULT) 09/27/2006 documented as of this encounter Social History Tobacco Use Types Packs/Day Years Used Date Smoking Tobacco: Never Cigarettes 30 Smokeless Tobacco: Current Snuff Tobacco Cessation:Ready to Q uit: Not Asked; Counseling Given: Not Answered Alcohol Use Standard Drinks/Week Comments No 0 (1 standard drink = 0.6 oz pur e alcohol) Sex and Gender Information Value Date Recorded Sex Assigned at Not on file Gender Identity Not on file Sexual Orientation Not on file Job Start Date Occupation Industry Not on file Not on file Not on file documented as of this encounter Last Filed Vital Signs Vital Sign Reading Time Taken Comments Blood Pressure 196/84 12/29/2023 10:26 AM EDT Pulse 88 12/29/2023 10:26 AM EDT Temperature 37 C (98.6 F) 12/29/2023 10:26 AM EDT Respiratory Rate 18 12/29/2023 10:26 AM EDT Oxygen Saturation 98% 12/29/2023 10:26 AM EDT Inhaled Oxygen Concentration - - Weight 130.6 kg (288 lb) 12/29/2023 10:26 AM EDT Height - - Body Mass Index 41.32 10/18/2016 10:10 PM EST documented in this encounter Patient Instructions * Patient Instructions* Pat Lee PA-C - 12/29/2023 10:40 AM EDT Rest Increase fluids. Tylenol or ibuprofen as needed. Follow directions on package. OK to try over the counter Chlorseptic or Cepachol lozengers. Follow directions on package. Warm salt water gargles ( 1 tsp of salt to 1 cup of warm water) If no better in the next 5-7 days, to follow up with primary care provider. To ER if any problems swallowing. documented in this encounter Progress Notes * Pat Lee PA-C - 12/29/2023 10:39 AM EDT Tiago Alaniz is a 68 year old male who presents with sore throat symptoms. Patient was accompanied by Self. HPI: Severity of Symptoms: mild to moderate Modifying Factors (what was done since onset of Symptoms): nothing Timing (How often does it occur): daily x 2 days Quality (Feels Like): sore throat S/ back surgery 1 week ago. Was intubated ROS: Constitutional symptoms: no fever, no weakness, no fatigue, and no chills Upper respiratory symptoms: + sore throat, - chest tightness, - cough , and - ear ache, - runnys/tuffy nose Pulmonary ROS: No cough, sputum, or hemoptysis, No wheezing, No shortness of breath, and No recent change in breathing Cardiovascular ROS: No chest pain, No shortness of breath, and No dyspnea on exertion Gastrointestional ROS: No abdominal pain and No nausea, vomiting, diarrhea, or constipation Skin/Integumentary ROS: No rash Symptom duration of 2 days. Recent illnesses in household: No HISTORY: Past Medical History: Diagnosis Date NONE Past Surgical History: Procedure Laterality Date COLONOSCOPY, DIAGNOSTIC (RECTUM) 02/15/09 repeat 3-5 yrs KNEE ARTHROSCOPY/MENISCECTOMY 1970 right knee OTHER 1966 fractured nose--set REPAIR SHOULDER CUFF AVULSION 2000 right shoulder --rotator cuff repair Social History Tobacco Use Smoking status: Never Smokeless tobacco: Current Types: Snuff Substance Use Topics Alcohol use: No Vaping/E-Cigarette Use Vaping/E-Cigarette Substances Vaping/E-Cigarette Devices Current Outpatient Medications Medication Sig Dispense Refill Tamsulosin HCl 0.4 MG Oral Capsule (Flomax) 2 Capsules. Pioglitazone HCl 45 MG Oral Tablet (Actos) 1 Tablet. glipiZIDE 5 MG Oral Tablet (Glucotrol) 1 Tablet. Lisinopril 10 MG Oral Tablet (Prinivil) 1 Tablet. Naproxen Sodium 220 MG Oral Tablet (Aleve) Take by mouth. No current facility-administered medications for this visit. Review of patient's allergies indicates: No Known Allergies No family history on file. OBJECTIVE: BP 196/84 | Pulse 88 | Temp 37 C (98.6 F) (Tympanic) | Resp 18 | Wt 130.6 kg (288 lb) | SpO2 98% | BMI 41.32 kg/m | BSA 2.54 m Wt Readings from Last 1 Encounters: 12/29/23 130.6 kg (288 lb) General appearance: awake, alert, no apparent distress HEENT: perrl and eomi tms - clear, normal light reflex, no erythema oral pharynx clear, mucus membranes moist + red and irritated pharynx No sinus tenderness or facial pain to percussion No turbinate engorgement or discharge Neck: normal, supple, no adenopathy Respiratory: clear to auscultation, no rhonchi, no wheezes, and no crackles Heart: regular rate, regular rhythm, no murmurs , no rubs, and no gallops Skin: skin color, texture, turgor are normal, no rashes or significant lesions Rapid strep negative. Patient Instructions Rest Increase fluids. Tylenol or ibuprofen as needed. Follow directions on package. OK to try over the counter Chlorseptic or Cepachol lozengers. Follow directions on package. Warm salt water gargles ( 1 tsp of salt to 1 cup of warm water) If no better in the next 5-7 days, to follow up with primary care provider. To ER if any problems swallowing. Assessment: Acute pharyngitis, unspecified etiology (Primary) - STREP A SCREEN, POINT OF CARE (ENTER/EDIT) - GROUP A STREP PCR; Future; Expected date: 12/29/2023 Patient goals for plan of care were discussed Pat Lee PA-C [address] [address] documented in this encounter Nursing Notes * Evie Chatman LPN - 12/29/2023 10:33 AM EDT Patient presents with sore, dry throat, white tongue. Symptoms began 2 days ago. Patient is post opback surgery 1 week. Is alone in the exam room. documented in this encounter Plan of Treatment Pending Results Name Type Priority Associated Diagnoses Date /Time GROUP A STREP PCR Lab Routine Acute pharyngitis, unspecified etiology 12/29/2023 11:33 AM EDT Scheduled Orders Name Type Priority Associated Diagnoses Orde r Schedule GROUP A STREP PCR Lab Routine Acute pharyngitis, unspecified etiology Expected: 12/29/2023, Expires: 12/28/2024 Health Maintenance Due Date Last Done Comments [...] Not on filedocumented as of this encounter Procedures Procedure Name Priority Date/Time Associated Diagnosis Comments STREP A SCREEN, POINT OF CARE (ENTER/EDIT) Routine 12/29/2023 11:32 AM EDT Acute pharyngitis, unspecified etiology documented in this encounter Results * STREP A SCREEN, POINT OF CARE (ENTER/EDIT) (12/29/2023 11:32 AM EDT) Strep A Result Negative Negative JP VAZQUEZ Procedural Control Valid? Yes JAYSHREE WEAVERWKali Lot Number [id number] [employer] OWENPARAS Expiration Date [employer] OWENPARAS Swab Throat swab / Unknown 12/29/2023 11:32 AM EDT Pat Lee PA-C LAB POINT OF CARE TEST ENTER/EDIT ORDERABLES JAYSHREE VAZQUEZ [address] [facility] [address] [place] [address] documented in this encounter Visit Diagnoses Diagnosis Acute pharyngitis, unspecified etiology- Primary documented in this encounter Care Teams Fruit Receiver Relationship Specialty Start Date End Date Cholo Varela MD [address] [place] [address] PCP - General Family Medicine 07/01/16 documented as of this encounter"
--- OUTSIDE RECORDS SUMMARY | 2024-01-01 08:33 | External Medical Summary | Summary of Care ---
Author Name Unknown Organization [facility] Address [address] [facility] [place] [address] Phone [phone] Care Team Providers Care Electroplater Name Role Phone Cholo Varela MD Primary Care Provider +1- [phone] Reason for Visit * Reason Comments Thrush Encounter Details Date Type Department Care Team (Latest Contact Info) Description 12/29/2023 10:40 AM EDT [facility] [place] [address] [facility] [address] [place] [address] Pat Lee PA-C [address] [facility] [address] [place] [address] Acute pharyngitis, unspecified etiology* Allergies No known [...] of care were discussed Pat Lee PA-C [address] [address] documented in this encounter Nursing Notes * [...] Valid? Yes JAYSHREE WEAVER[employer]ali Lot Number [id number] [employer] OWENPARAS Expiration Date [employer] OWENPARAS Swab Throat swab / Unknown 12/29/2023 11:32 AM EDT Pat Lee PA-C LAB POINT OF CARE TEST ENTER/EDIT ORDERABLES JAYSHREE VAZQUEZ [address] [facility] [address] [place] [address] documented in this encounter Visit Diagnoses Diagnosis Acute pharyngitis, unspecified etiology- Primary documented in this encounter Care Teams Electroplater Relationship Specialty Start Date End Date Cholo Varela MD [address] [place] [address] PCP - General Family Medicine 07/01/16 documented as of this encounter"
[2024-01-01 08:40] LABS: Magnesium 1.8 mg/dl (1.7-2.4)
[2024-01-01] MEDS ORDERED: CYCLOBENZAPRINE HCL 10 MG TAB PO SCH (09:00)
--- NOTE | 2024-01-01 10:27 | XRay Report ---
XR lumbar spine 2-3V CLINICAL HISTORY: Back Pain, Spasms COMPARISON STUDY: Lumbar spine MRI October 26, 2023. Fluoroscopic images of the lumbar spine December 18, 2023. FINDINGS: There are stable postoperative findings following L4-L5 discectomy, decompression and bilat eral pedicle screw fusion. Hardware is intact. There are no lumbar spine fractures. Anterior osteophy tosis of the lower thoracic and lumbar spine is again noted. There is mild multilevel disc space narr owing. There are no osseous lesions. IMPRESSION: 1. No lumbar spine fractures. 2. Stable postoperative findings following L4-L5 decompression and fusion. ACT 112: Negative or not required by law. Electronically signed by: Juan Miguel Reddy M.D. 01/01/2024 10:24 AM
[2024-01-01] MEDS: DOXYCYCLINE HYCLATE 100 MG CAP PO SCH (15:10)
--- NOTE | 2024-01-01 16:31 | Hospitalist Progress Note ---
Date of Service January 01, 2024 Assessment & Plan (1) Status post lumbar spine surgery for decompression of spinal cord: (2) Stasis edema with ulcer of both lower extremities: (3) Diabetes mellitus, type 2: (4) Hypertension: Plan This is a 68-year-old male has significant past medical history of T2DM, HTN, BPH who follows with family practice in [place]. Of significance he was recently hospitalized on 12/17 to 12/19 and underwent an elective lumbar surgical procedure with Dr. Paiz. He underwent an L4-L5 lumbar decompression and fusion and tolerated the procedure well. Patient's postoperative course since discharge has been complicated with ambulatory dysfunction secondary to low back pain and muscle spasm and mostly being in the seated position due to inability to lay flat in bed. Due to lack of mobility and dependent nature of edema he had significant difficulty ambulating. Ambulatory dysfunction Recurrent spasms, back pain H/O L4-L5 lumbar decompression fusion on 12/18/[address] Paiz --Lumbar X ray:No lumbar spine fractures. Stable postoperative findings following L4-L5 decompression and fusion. Pain control, added baclofen Fall precautions PT OT Consulted orthopedics B/L lower extremity stasis edema with ulceration Likely due to venous stasis, Pioglitazone --Venous Doppler:Exam is limited but no DVT is seen. The left leg could not be evaluated due to patient intolerance. Right greater saphenous vein, profunda, peroneal, and anterior tibial veins were not visualized. Soft tissue edema is noted in the leg. --ECHO:Moderate concentric LVH. No regional wall motion abnormality. EF 65 to 70%. --Consider to discontinue pioglitazone on discharge --Monitor volume status Continue IV Lasix for now May need to discharge on p.o. Lasix as needed for edema Empirically on doxycycline Consult Wound Care Monitor renal function while on IV lasix HTN: Continue Lisinopril NIDDM2: Chronic Takes Actos and Glipizide at home Hold home meds Continue Insulin while inpatient HbA1C: 8.9 on 12/03 BPH: Continue Tamsulosin Morbid Obesity BMI 40 DVT Px: Lovenox SQ Code Status: Full Code Admission and Anticipated Discharge Date Admission Date: December 31, 2023 Subjective Patient is seen and examined at bedside States having recurrent spasms of left hip Also reports leg edema Back pain at surgical site is controlled Denies chest pain, abd pain, dyspnea, incontinence Review of Systems Review of Systems: All systems reviewed & are unremarkable except as noted in Subjective Physical Exam Physical Exam: Physical Exam: Vitals signs as noted above General Appearance:Morbidly Obese, no apparent distress Head: normocephalic, Atraumatic Eyes: normal inspection, EOMI Neck: supple, Trachea midline Respiratory/Chest: Normal breath sounds, CTA, No accessory muscle use Cardiovascular: S1, S2, No murmur Abdomen/GI:Soft, Non tender, Bowel sounds present Extremities/Musculoskeletal:normal inspection, 2+ LE edema, +Ulcerations Neurologic/Psych:AAOX3, grossly no focal neurological deficits Skin: normal color, warm Results & Data Results & Data Vital Signs (Past 12 Hours) Vital Signs Temp Pulse Pulse Resp BP BP Pulse Ox 01/01/24 15:27 78 01/01/24 14:35 01/01/24 14:26 36.7 C 82 18 135/77 96 01/01/24 10:53 99 H 20 122/68 98 01/01/24 08:32 36.8 C 77 20 145/73 H 98 01/01/24 07:17 90 01/01/24 05:25 85 18 140/86 96 O2 Del Method 01/01/24 15:27 01/01/24 14:35 Room Air 01/01/24 14:26 Room Air 01/01/24 10:53 Room Air 01/01/24 08:32 Room Air 01/01/24 07:17 01/01/24 05:25 Room Air
[2024-01-02 08:22] LABS: Hematocrit (blood only) 37.9 % (42.0-52.0); Hemoglobin 12.2 g/dl (14.0-18.0); Mean Corpuscular Hemoglobin 28.6 pg (25.0-34.0); Mean Corpuscular Hgb Conc 32.2 g/dL (32.0-36.0); Mean Platelet Volume 10.1 fL (9.4-12.4); Platelet Count 294 K/uL (130-400); RDW Coefficient of Variation 13.4 % (11.5-14.5); Red Blood Count 4.26 M/uL (4.70-6.10); White Blood Count 8.45 K/ul (4.8-10.8)
[2024-01-02 09:00] LABS: BUN Creatinine Ratio 27.4 (10-20); Calcium 8.8 mg/dl (8.6-10.3); Creatinine Clr Calc Pharmacy 57.9 ml/min; Est GFR (African American) 49.1 ml/min; Est GFR (Non-African American) 42.3 ml/min; Magnesium 1.9 mg/dl (1.7-2.4); Potassium 4.6 mmol/L (3.5-5.1)
--- NOTE | 2024-01-02 09:55 | Orthopedic Consultation ---
Date of Service January 02, 2024 History of Present Illness Reason for Consultation: History of recent lumbar surgery. Requesting Physician: . Attending Physician: Naila Welsh MD 68-year-old male has significant past medical history of T2DM, HTN, BPH who follows with family practice in [place]. Of significance he was recently hospitalized on 12/17 to 12/19 and underwent an elective lumbar surgical procedure with Dr. Paiz. He underwent an L4-L5 lumbar decompression and fusion and tolerated the procedure well. Patient's postoperative course since discharge has been complicated with ambulatory dysfunction secondary to low back pain and muscle spasm and mostly being in the seated position due to inability to lay flat in bed. Due to lack of mobility and dependent nature of edema he had significant difficulty ambulating. The patient relates to me that he has noted notable improvement in his low back pain and lower extremity symptoms since his surgery, he has no issues with the surgical procedure or in the lower back though he does get significant spasms in the left lumbosacral spine. Exam reveals the patient to gait pain in the left lumbosacral region, the incision site is completely healed with no findings to suggest an infectious process. He otherwise has no focal motor weakness in the lower extremities. There is bandages applied to the lower extremities due to edema with ulceration. Review of radiographs from January 01, 2024 reveal instrumentation and cage placement at L4-5, operative implants in proper position when compared to previous intraoperative radiographs from January 16. Impression: Status post L4-L5 lumbar decompression fusion on 12/18/[address] Paiz Bilateral lower extremity stasis edema with ulceration. I discussed with the patient that certainly his operative site appears to be doing well, and he is improved from his fusion decompression for degenerative spondylolisthesis at the L4-5 level. I recommended the patient undergo continued mobilization he has no specific restrictions, perhaps trial of different muscle relaxers might be an option to alleviate the severe spasms he gets in his left lumbosacral spine, more likely has upcoming follow-up in the next [address] Paiz's office status post his surgery. Allergies Allergy/AdvReac Type Severity Reaction Status Date / Time No Known Allergies Allergy Verified 12/31/23 17:22 Home Medications Medication Instructions Recorded Confirmed Type glipizide 5 mg tablet 5 mg PO BID 10/18/23 12/31/23 History lisinopril 10 mg tablet 10 mg PO QAM 10/18/23 12/31/23 History pioglitazone 45 mg tablet 45 mg PO QAM 10/18/23 12/31/23 History tamsulosin 0.4 mg capsule 0.8 mg PO HS 10/18/23 12/31/23 History oxycodone 5 mg tablet 5 mg PO Q6H PRN pain #30 tabs 12/18/23 12/31/23 Rx tramadol 50 mg tablet 50 mg PO Q6H PRN pain, moderate 12/18/23 12/31/23 Rx #30 tabs Past Med/Surg History Medical History (Updated 12/31/23 @ 22:08 by Juan Reynolds M.D.) Hypertension Diabetes mellitus, type 2 NIDDM BPH (benign prostatic hyperplasia) Low back pain Surgical History (Updated 12/31/23 @ 22:08 by Juan Reynolds M.D.) History of MRI MRI lumbar spine without contrast (10/26/23): MAC at [facility] History of right knee surgery right menicus repair Hx of rotator cuff surgery right History of colonoscopy History of tonsillectomy Social History Smoking Status: Current every day smoker Tobacco Type: Smokeless Tobacco (Dip or Chew) Second Hand Exposure: Yes ( smokes); Do You Dip or Chew Tobacco: Yes; Hx Alcohol Use: No Hx Substance Use: No Preferred Language: Burkinan Communication Ability: Effective Student Activities Director Required: No Beliefs That Will Affect Care: None Current Living Situation: Spouse Current Living Situation Comment: home Feels Safe at Home: Yes Safety Concerns: Feels Safe At This Time Assistive Devices: Walker Assistive Devices Comment: pt has been using walker since surgery 2 weeks ago Review of Systems All systems reviewed & are unremarkable except as noted in HPI & below. Physical Exam . Results & Data Results & Data Laboratory Results . Diagnostic Findings . PG Care Time/CCT Total # of Minutes Spent Total Time Spent with Patient: Total time spent is greater than 50% in coordination of care (as documented) at patient's floor/unit and/or counseling patient: Coding Level of Care Code 03615 IN/OBS CONSULT LVL 2,35M
--- NOTE | 2024-01-02 10:14 | Hospitalist Progress Note ---
Date of Service January 02, 2024 Assessment & Plan (1) Status post lumbar spine surgery for decompression of spinal cord: (2) Stasis edema with ulcer of both lower extremities: (3) Diabetes mellitus, type 2: (4) Hypertension: Plan 68-year-old male has significant past medical history of T2DM, HTN, BPH who follows with family practice in [place]. Recently hospitalized on 12/17 to 12/19 and underwent an elective lumbar surgical procedure ( L4-L5 lumbar decompression and fusion) with Dr. Paiz. Patient's postoperative course since discharge has been complicated with ambulatory dysfunction secondary to low back pain and muscle spasm and mostly being in the seated position due to inability to lay flat in bed. Ambulatory dysfunction Recurrent spasms, back pain H/O L4-L5 lumbar decompression fusion on 12/18/[address] Paiz --Lumbar X ray:No lumbar spine fractures. Stable postoperative findings following L4-L5 decompression and fusion. Continue pain control Continue baclofen prn. Monitor renal function Encourage activity and ambulation Follow up with Ortho outpatient PT/OT while inpatient B/L lower extremity stasis edema with ulceration Likely due to venous stasis, Pioglitazone --Venous Doppler:Exam is limited but no DVT is seen. The left leg could not be evaluated due to patient intolerance. Right greater saphenous vein, profunda, peroneal, and anterior tibial veins were not visualized. Soft tissue edema is noted in the leg. --ECHO:Moderate concentric LVH. No regional wall motion abnormality. EF 65 to 70%. Continue IV Lasix for now Plan to discharge on p.o. Lasix Monitor renal function. Cr is 1.64 (Similar to previous from last month) Possible CKD3. Recent labs are only within the last month so unable to make that determination at this time Empirically on doxycycline for possible cellulitis Continue wound care Plan to DC pioglitazone on dc in view of Leg edema, LVH on TTE HTN: Continue Lisinopril NIDDM2: Chronic Takes Actos and Glipizide at home Hold home meds Continue Insulin while inpatient HbA1C: 8.9 on 12/03 Plan to stop pioglitazone on dc. May need a different antidiabetic regimen BPH: Continue Tamsulosin Morbid Obesity BMI 40 Lifestyle modification education provided DVT Px: Lovenox SQ Code Status: Full Code Called and updated I spent a total of 50 minutes coordinating, documenting and providing care for this patient excluding time spent in performance of separately billed services Admission and Anticipated Discharge Date Admission Date: December 31, 2023 Subjective Patient seen and examined. Reports intermittent reports intermittent low back pain on the left side associated with spasms. Has leg swelling. Denies any pain in the legs at this time.. Denies any other complaints on review of systems Physical Exam Constitutional: + well hydrated; no acute distress Eyes: PERRL, conjunctivae normal, anicteric sclerae ENMT: external ear and nose normal, oropharynx normal Respiratory: normal respiratory effort, lungs clear to auscultation Cardiovascular: Rate/Rhythm: regular rate and regular rhythm S1-S2 Gastrointestinal (Abdomen): normal bowel sounds, soft, nontender, no hepatosplenomegaly Musculoskeletal: Bilateral pedal edema. +ulceration (as in pics) Neurologic: PERRL, EOMI, accommodation nl, no face palsy, no dysarthria Psychiatric: A+Ox3, euthymic affect Results & Data Results & Data Vital Signs (Past 12 Hours) Vital Signs Temp Pulse Pulse Resp BP Pulse Ox O2 Del Method 01/02/24 07:25 36.4 C L 81 20 167/65 H 100 Room Air 01/02/24 03:06 36.9 C 80 20 155/80 H 94 Room Air 01/01/24 23:06 75 01/01/24 22:45 36.4 C L 81 20 149/94 H 98 Room Air 01/01/24 22:43 Room Air Laboratory Results Abnormal lab results 01/01/24 01/01/24 01/01/24 Range/Units 10:50 17:10 20:32 RBC (4.70-6.10) M/uL Hgb (14.0-18.0) g/dl Hct (42.0-52.0) % Sodium (136-145) mmol/L BUN (6-23) mg/dl Creatinine (0.6-1.4) mg/dl BUN/Creatinine Ratio (10-20) Glucose (70-99(Fasting)) mg/dl POC Glucose 246 H 145 H 149 H (70-99) mg/dl 01/02/24 01/02/24 Range/Units 07:39 08:00 RBC 4.26 L (4.70-6.10) M/uL Hgb 12.2 L (14.0-18.0) g/dl Hct 37.9 L (42.0-52.0) % Sodium 135 L (136-145) mmol/L BUN 45 H (6-23) mg/dl Creatinine 1.64 H D (0.6-1.4) mg/dl BUN/Creatinine Ratio 27.4 H (10-20) Glucose 204 H (70-99(Fasting)) mg/dl POC Glucose 195 H (70-99) mg/dl
[2024-01-02] MEDS ORDERED: Nursing to Pharmacy Communication SCH (20:45)
[2024-01-02] MEDS: LIDOCAINE 5% 1 PATCH TD SCH (20:54)
[2024-01-03] MEDS: MoRPHine SULFATE 4 MG/ML 1 ML CARP\\VIAL IV PRN (01:43)
[2024-01-03] MEDS: HYDROmorphone INJ 0.5 MG/0.5 ML SYR IV STA ×2 (03:48→04:32)
[2024-01-03] MEDS: CYCLOBENZAPRINE HCL 10 MG TAB PO STA (04:32)
[2024-01-03] MEDS: diazePAM 5 MG TABLET PO PRN (05:22)
[2024-01-03 07:04] LABS: Hematocrit (blood only) 38.7 % (42.0-52.0); Hemoglobin 12.6 g/dl (14.0-18.0); Mean Corpuscular Hemoglobin 28.8 pg (25.0-34.0); Mean Corpuscular Hgb Conc 32.6 g/dL (32.0-36.0); Mean Corpuscular Volume 88.4 fL (80.0-100.0); Platelet Count 304 K/uL (130-400); RDW Coefficient of Variation 13.2 % (11.5-14.5); RDW Standard Deviation 43.3 fL (36.4-46.3); Red Blood Count 4.38 M/uL (4.70-6.10); White Blood Count 7.24 K/ul (4.8-10.8)
[2024-01-03 07:14] LABS: Calcium 8.8 mg/dl (8.6-10.3); Potassium 4.8 mmol/L (3.5-5.1)
[2024-01-03 07:20] LABS: BUN Creatinine Ratio 30.6 (10-20); Creatinine Clr Calc Pharmacy 51.9 ml/min; Est GFR (Non-African American) 37.1 ml/min
--- NOTE | 2024-01-03 09:17 | Pain Management Consultation ---
Date of Consultation January 03, 2024 Assessment & Plan (1) Back pain with history of spinal surgery: (2) Status post lumbar spine surgery for decompression of spinal cord: (3) Stasis edema with ulcer of both lower extremities: (4) Diabetes mellitus, type 2: Plan 1. Recommend application of ice x 20 minutes every 1-2 hours. 2. Recommend increasing oxycodone frequency to Q4H prn. 3. PT/OT for mobilization. 4. No procedural interventions are recommended due to patient being in a postoperative state. 5. If pain persists at the current level, or worsens, consideration should be given for MRI of the lumbar spine with and without contrast to evaluate for postoperative changes. Pain management service will sign off at this time. History of Present Illness Attending Physician: Naila Welsh MD History of Present Illness Patient is a 68-year-old male who underwent lumbar spine surgery, to address lumbar spinal stenosis with neurogenic claudication and spondylolisthesis of L4 on L5, by Dr. Paiz about 2.5 weeks ago on 12/18/2023. He had a lumbar decompression with bilateral facetectomy and foraminotomies at L3-4 and L4-5. There was a spinal fusion with posterior instrumentation placed at L4-5. Interbody fusion was performed at L4-5 as well. Patient did note after the surgery that he started to experience bilateral leg and foot/toe swelling; this began the day prior to his presentation to the [facility] ED on 12/31/2023. When he was in the ED, he was denying any significant redness to his legs and he also reported no trauma or fever. He has been having weeping to the skin of his lower legs. Patient says that he has not been able to lay down flat, as it causes severe spasms in the left side of his low back. He describes the surgical site as being "great". Patient states that he can be fine for an hour, but sometimes only 10 minutes can go by, and he can start to experience severe spasm-like pain in his left lumbosacral region. Patient says that he is most comfortable in a seated position leaning forward. Even trying to sit up straight in the chair seems to be causing the spasm sensations. Case discussed with Dr. Florecita Becerra. Allergies Allergy/AdvReac Type Severity Reaction Status Date / Time No Known Allergies Allergy Verified 12/31/23 17:22 Home Medications Medication Instructions Recorded Confirmed Type glipizide 5 mg tablet 5 mg PO BID 10/18/23 12/31/23 History lisinopril 10 mg tablet 10 mg PO QAM 10/18/23 12/31/23 History pioglitazone 45 mg tablet 45 mg PO QAM 10/18/23 12/31/23 History tamsulosin 0.4 mg capsule 0.8 mg PO HS 10/18/23 12/31/23 History oxycodone 5 mg tablet 5 mg PO Q6H PRN pain #30 tabs 12/18/23 12/31/23 Rx tramadol 50 mg tablet 50 mg PO Q6H PRN pain, moderate 12/18/23 12/31/23 Rx #30 tabs Patient History Medical History Back pain with history of spinal surgery Hypertension Diabetes mellitus, type 2 NIDDM BPH (benign prostatic hyperplasia) Low back pain Surgical History History of MRI MRI lumbar spine without contrast (10/26/23): MAC at [facility] History of right knee surgery right menicus repair Hx of rotator cuff surgery right History of colonoscopy History of tonsillectomy Social History Smoking Status: Current every day smoker Tobacco Type: Smokeless Tobacco (Dip or Chew) Second Hand Exposure: Yes ( smokes); Do You Dip or Chew Tobacco: Yes; Hx Alcohol Use: No Hx Substance Use: No Preferred Language: Nepali Communication Ability: Effective 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 Mood and affect is appropriate. Does not appear in acute distress. Sits leaning forward in bedside chair. HEAD: Normocephalic; atraumatic. NECK: Trachea is midline. CHEST: Regular chest respiration and excursion. EXTREMITIES: Distal pulses intact bilaterally.Bandages noted to bilateral lower legs and ankles with edema and skin weeping present. BACK: Diminished ROM.+ Exquisite tenderness to left lumbosacral region, lateral to the surgical incision at its inferior aspect (this sets off a "spasm").Inspection/palpation demonstrates midline cicatrix with Steri-Strips intact. Tag end of Monocryl suture is seen. Lidocaine patch present to left lumbar. NEURO: CN II-XII grossly intact with no focal deficits noted. Awake, alert, and oriented x 3. LOWER EXTREMITIES: R Hip flexion 5/5; hip extension 5/5; knee extension 5/5; knee flexion 5/5; ankle dorsiflexion 5/5; ankle plantar flexion 5/5; EHL 5/5 L Hip flexion 5/5; hip extension 5/5; knee extension 5/5; knee flexion 5/5; ankle dorsiflexion 5/5; ankle plantar flexion 5/5; EHL 5/5
--- NOTE | 2024-01-03 09:42 | Nephrology Consultation ---
Date of Consultation January 03, 2024 Assessment & Plan (1) CARMEN (acute kidney injury): Stage I nonoliguric acute kidney injury. Baseline creatinine 1.3 late november. creat has uptrended since admission to 1.8 today. chemistries ok; mild vol OL. Daily basic metabolic panel Continue NSAID avoidance and, unless lifesaving, avoid IV contrast - d/t accumulation of morphine metabolites and renal failure, may want to consider alternative opioid if CARMEN worsens -ordered UA > remarkable for 1+ glucose -defer renal u/s for now given back pain/challenges maneuvering -needs strict I/O (2) Stasis edema with ulcer of both lower extremities: likely multifactorial in setting of dependent limbs, NSAID use, ?sodium intake, -change lasix dose to 10 mg IV tid starting in AM 510; had 20 mg I Vtoday already -daily bmp -strict I/O -Agree with low-sodium diet Will start 1.5 L fluid limit -needs daily STANDING weight which after review of PT activities he should be able to do -where possible, use pain meds that do not increase edema; baclofen can cause edema at times so will monitor; lidocaine/morphine ok from this standpoint -compression as tolerated > ? tubigrips w/ cutout for lesions History of Present Illness Reason for Consultation: Acute kidney injury, diuretic management Requesting Physician: Dr. Welsh Attending Physician: Naila Welsh MD History of Present Illness 68-year-old male whom I am asked to evaluate for acute kidney injury and diuretic management was admitted on December 30 with significant ambulatory dysfunction and dependent edema in the wake of november elective L4-L5 lumbar decompression and fusion. Past medical history includes diabetes, hypertension, prostatic hypertrophy, active tobacco use. Hospitalized [facility] January 16 to for surgical procedure above which was well-tolerated. After arrival home from hospital, patient with sharp shooting spasms of low back pain which have essentially immobilized him in an upright sitting position with inability to lie flat. He takes no diuretics as an outpatient; he was taking "lots" of naproxen however since hospital d/c. Since 12/30 arrival, he has been receiving Lasix 20 mg daily IV. He was also started on empiric doxycycline. Current pain regimen is lidocaine patch with as needed baclofen and morphine. I's and O's may be incomplete but appear that he is about net even so far on the admission. His renal function has been labile through this whole process with baseline creatinine 1.2 but in general it has been in the mid ones and today up to 1.8. No outpatient lab data are available in the past 3 years. Reported 50 pound weight gain past 6 months as he is dealt with back issues. he tells me that in general he feels much better but that the back spasms are severely painful. Worsening lower extremity edema since early December with clear fluid seepage and some skin breakdown. No dyspnea. Unable to evaluate orthopnea. No fever chills or decreased appetite. No increased abdominal girth acutely or subacutely. No chest pain or pressure. Allergies Allergy/AdvReac Type Severity Reaction Status Date / Time No Known Allergies Allergy Verified 12/31/23 17:22 Home Medications Medication Instructions Recorded Confirmed Type glipizide 5 mg tablet 5 mg PO BID 10/18/23 12/31/23 History lisinopril 10 mg tablet 10 mg PO QAM 10/18/23 12/31/23 History pioglitazone 45 mg tablet 45 mg PO QAM 10/18/23 12/31/23 History tamsulosin 0.4 mg capsule 0.8 mg PO HS 10/18/23 12/31/23 History oxycodone 5 mg tablet 5 mg PO Q6H PRN pain #30 tabs 12/18/23 12/31/23 Rx tramadol 50 mg tablet 50 mg PO Q6H PRN pain, moderate 12/18/23 12/31/23 Rx #30 tabs Patient History Medical History Back pain with history of spinal surgery Hypertension Diabetes mellitus, type 2 NIDDM BPH (benign prostatic hyperplasia) Low back pain Surgical History History of MRI MRI lumbar spine without contrast (10/26/23): MAC at [facility] History of right knee surgery right menicus repair Hx of rotator cuff surgery right History of colonoscopy History of tonsillectomy Social History Smoking Status: Current every day smoker Tobacco Type: Smokeless Tobacco (Dip or Chew) Second Hand Exposure: Yes ( smokes); Do You Dip or Chew Tobacco: Yes; Hx Alcohol Use: No Hx Substance Use: No Preferred Language: Croatian Communication Ability: Effective Occupational Nurse Required: No Beliefs That Will Affect Care: None Current Living Situation: Spouse Current Living Situation Comment: home Feels Safe at Home: Yes Safety Concerns: Feels Safe At This Time Assistive Devices: Walker Assistive Devices Comment: pt has been using walker since surgery 2 weeks ago Review of Systems 2 Review of Systems: All systems reviewed & are unremarkable except as noted in HPI & below Physical Exam 2 Constitutional: well developed, + acute distress (marked distress observed as he settled into chair when I walked into room), + morbidly obese and cooperative Eyes: EOM intact bilaterally ENMT: Ears: no external ear abnormality Nose: no external nose abnormality Mouth: + dry oral mucous membranes Neck: no nuchal rigidity Respiratory: normal respiratory effort Auscultation: + diminished lung sounds Cardiovascular: Rate/Rhythm: regular rate and regular rhythm Extremities: + edema (2-3+ pedal/ankles wrapped) Gastrointestinal (Abdomen): Inspection/Auscultation: normal bowel sounds P ercussion/Palpation: abdomen soft; abdomen nontender Musculoskeletal: Extremities: strength 5/5 throughout Skin: no rashes, warm and dry Neurologic: wolfe, fluent speech, no tremor Psychiatric: Orientation: alert and oriented x 3 Results & Data Vital Signs (Past 12 Hours) Vital Signs Temp Pulse Pulse Resp BP Pulse Ox O2 Del Method 01/03/24 08:49 36.4 C L 87 18 140/76 96 Room Air 01/03/24 07:00 81 01/03/24 03:15 36.7 C 78 18 203/71 H 97 Room Air 01/03/24 01:50 87 01/02/24 23:00 36.5 C 89 20 146/67 H 100 Room Air Laboratory Results 01/03/24 06:25 01/03/24 06:25 Diagnostic Findings TTE Very technically limited study since patient is in the upright position. Moderate cLVH and EF 65% with no wall motion abnormalities. December 31 wound images reviewed
--- NOTE | 2024-01-03 10:33 | Hospitalist Progress Note ---
Date of Service January 03, 2024 Assessment & Plan (1) Status post lumbar spine surgery for decompression of spinal cord: (2) Stasis edema with ulcer of both lower extremities: (3) Diabetes mellitus, type 2: (4) Hypertension: Plan 68-year-old male has significant past medical history of T2DM, HTN, BPH who follows with family practice in [place]. Recently hospitalized on 12/17 to 12/19 and underwent an elective lumbar surgical procedure ( L4-L5 lumbar decompression and fusion) with Dr. Paiz. Patient's postoperative course since discharge has been complicated with ambulatory dysfunction secondary to low back pain and muscle spasm and mostly being in the seated position due to inability to lay flat in bed. Ambulatory dysfunction Recurrent spasms, back pain H/O L4-L5 lumbar decompression fusion on 12/18/[address] Paiz --Lumbar X ray:No lumbar spine fractures. Stable postoperative findings following L4-L5 decompression and fusion. Got multiple meds overnight Currently on multiple meds for pain and spasms Will consult Pain management for guidance Discussed with patient and RN about need to monitor for side effects Encourage activity and ambulation Follow up with Ortho outpatient PT/OT while inpatient B/L lower extremity stasis edema with ulceration Likely due to venous stasis, Pioglitazone --Venous Doppler:Exam is limited but no DVT is seen. The left leg could not be evaluated due to patient intolerance. Right greater saphenous vein, profunda, peroneal, and anterior tibial veins were not visualized. Soft tissue edema is noted in the leg. --ECHO:Moderate concentric LVH. No regional wall motion abnormality. EF 65 to 70%. Cr is increased to 1.83 today Possibly has CKD3. Recent labs are only within the last month so unable to make that determination at this time Will appreciate Nephrology's aid with management of diuretics/vol and renal function Empirically on doxycycline for possible cellulitis Continue wound care Pioglitazone discontinued in view of Leg edema, LVH on TTE HTN: Currently on Lisinopril NIDDM2: Chronic Takes Actos and Glipizide at home Hold home meds Continue Insulin while inpatient HbA1C: 8.9 on 12/03 Plan to stop pioglitazone on dc. May need a different antidiabetic regimen BPH: Continue Tamsulosin Morbid Obesity BMI 40 Lifestyle modification education provided DVT Px: Lovenox SQ Code Status: Full Code I spent a total of 50 minutes coordinating, documenting and providing care for this patient excluding time spent in performance of separately billed services Admission and Anticipated Discharge Date Admission Date: December 31, 2023 Subjective Patient seen and examined. 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 Patient currently reports pain is controlled and better with him sitting in chair Has leg swelling. Denies any other complaints on review of systems Physical Exam Constitutional: + well hydrated; no acute distress Eyes: PERRL, conjunctivae normal, anicteric sclerae ENMT: external ear and nose normal, oropharynx normal Respiratory: normal respiratory effort, lungs clear to auscultation Cardiovascular: Rate/Rhythm: regular rate and regular rhythm Gastrointestinal (Abdomen): normal bowel sounds, soft, nontender, no hepatosplenomegaly Musculoskeletal: B/L pedal edema Dressing over ulcer Neurologic: PERRL, EOMI, accommodation nl, no face palsy, no dysarthria Psychiatric: A+Ox3, euthymic affect Results & Data Results & Data Vital Signs (Past 12 Hours) Vital Signs Temp Pulse Pulse Resp BP Pulse Ox O2 Del Method 01/03/24 08:49 36.4 C L 87 18 140/76 96 Room Air 01/03/24 07:00 81 01/03/24 03:15 36.7 C 78 18 203/71 H 97 Room Air 01/03/24 01:50 87 01/02/24 23:00 36.5 C 89 20 146/67 H 100 Room Air Laboratory Results Abnormal lab results 01/02/24 01/02/24 01/02/24 Range/Units 11:58 16:54 20:01 RBC (4.70-6.10) M/uL Hgb (14.0-18.0) g/dl Hct (42.0-52.0) % BUN (6-23) mg/dl Creatinine (0.6-1.4) mg/dl BUN/Creatinine Ratio (10-20) Glucose (70-99(Fasting)) mg/dl POC Glucose 135 H 163 H 254 H (70-99) mg/dl 01/03/24 01/03/24 Range/Units 06:25 08:35 RBC 4.38 L (4.70-6.10) M/uL Hgb 12.6 L (14.0-18.0) g/dl Hct 38.7 L (42.0-52.0) % BUN 56 H (6-23) mg/dl Creatinine 1.83 H (0.6-1.4) mg/dl BUN/Creatinine Ratio 30.6 H (10-20) Glucose 153 H (70-99(Fasting)) mg/dl POC Glucose 130 H (70-99) mg/dl
[2024-01-03 12:36] LABS: Appearance Urine Clear (Clear); Bilirubin Urine Negative (Negative); Blood Urine Negative (Negative); Color Urine Yellow; Glucose Urine UA 1+ (Negative); Ketones Urine Negative (Negative); Leukocyte Esterase Urine Negative (Negative); Nitrite Urine Negative (Negative); Protein Urine Negative (Negative); Specific Gravity Urine 1.017 (1.000-1.030); Urobilinogen Urine Negative (Negative)
--- NOTE | 2024-01-03 14:58 | Orthopedic Progress Note ---
Date of Service January 03, 2024 Subjective Patient seen and examined, he notes some limited improvement in the spasms on the left lumbosacral area. Patient has responded to Valium, 5 mg every 6 hours. No changes in examination, lumbar region unremarkable. No focal motor weakness. Plan: Will continue with medications, and also begin physical therapy for mobilization, will have hospitalist discussed whether or not we could add Toradol as an option for a limited amount of time. Review of Systems All systems reviewed & are unremarkable except as noted in HPI & below. Physical Exam . Results & Data Results & Data Laboratory Results . Diagnostic Findings . PG Care Time/CCT Total # of Minutes Spent Total Time Spent with Patient: Total time spent is greater than 50% in coordination of care (as documented) at patient's floor/unit and/or counseling patient: Coding Level of Care Code 56983 SUB INP/OBS CARE 09/20MIN
[2024-01-04] MEDS ORDERED: FUROSEMIDE INJ 20 MG/2 ML VIAL IV SCH (08:00)
[2024-01-04 09:22] LABS: BUN Creatinine Ratio 30.9 (10-20); Calcium 9.6 mg/dl (8.6-10.3); Est GFR (African American) 34.4 ml/min; Est GFR (Non-African American) 29.7 ml/min; Potassium 5.3 mmol/L (3.5-5.1)
--- NOTE | 2024-01-04 11:24 | Hospitalist Progress Note ---
Date of Service January 04, 2024 Assessment & Plan (1) Status post lumbar spine surgery for decompression of spinal cord: (2) Stasis edema with ulcer of both lower extremities: (3) Diabetes mellitus, type 2: (4) Hypertension: Plan 68-year-old male has significant past medical history of T2DM, HTN, BPH who follows with family practice in [place]. Recently hospitalized on 12/17 to 12/19 and underwent an elective lumbar surgical procedure ( L4-L5 lumbar decompression and fusion) with Dr. Paiz. Patient's postoperative course since discharge has been complicated with ambulatory dysfunction secondary to low back pain and muscle spasm and mostly being in the seated position due to inability to lay flat in bed. Ambulatory dysfunction Recurrent spasms, back pain H/O L4-L5 lumbar decompression fusion on 12/18/[address] Paiz --Lumbar X ray:No lumbar spine fractures. Stable postoperative findings following L4-L5 decompression and fusion. Continue oxycodone prn and valium prn Continue baclofen tid prn. CrCl is 43 today. Not to exceed 40mg/day of baclofen Monitor for med side effects Pain mgt recs appreciated Ortho recs appreciated Encourage activity and ambulation PT/OT while inpatient B/L lower extremity stasis edema with ulceration Likely due to venous stasis, Pioglitazone --Venous Doppler:Exam is limited but no DVT is seen. The left leg could not be evaluated due to patient intolerance. Right greater saphenous vein, profunda, peroneal, and anterior tibial veins were not visualized. Soft tissue edema is noted in the leg. --ECHO:Moderate concentric LVH. No regional wall motion abnormality. EF 65 to 70%. Cr is increased to 2.2 today Possibly has CKD3. 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 May need a different antidiabetic regimen BPH: Continue Tamsulosin Morbid Obesity BMI 40 Lifestyle modification education provided DVT Px: Lovenox SQ Code Status: Full Code I spent a total of 40 minutes coordinating, documenting and providing care for this patient excluding time spent in performance of separately billed services Admission and Anticipated Discharge Date Admission Date: December 31, 2023 Subjective Patient seen and examined. Still having left lower back spasms intermittently Has leg swelling. Denies any other complaints on review of systems Physical Exam Constitutional: + well hydrated; no acute distress Eyes: PERRL, conjunctivae normal, anicteric sclerae ENMT: external ear and nose normal, oropharynx normal Respiratory: normal respiratory effort, lungs clear to auscultation Cardiovascular: Rate/Rhythm: regular rate and regular rhythm S1 S2 Gastrointestinal (Abdomen): normal bowel sounds, soft, nontender, no hepatosplenomegaly Musculoskeletal: B/L pedal edema Leg ulcer with erythema Neurologic: PERRL, EOMI, accommodation nl, no face palsy, no dysarthria Psychiatric: A+Ox3, euthymic affect Results & Data Results & Data Vital Signs (Past 12 Hours) Vital Signs Temp Pulse Resp BP BP Pulse Ox O2 Del Method 01/04/24 07:56 36.7 C 84 18 139/82 97 Room Air 01/04/24 07:46 Room Air 01/04/24 04:00 36.3 C L 90 18 107/61 107/61 92 Room Air 01/04/24 02:59 Room Air Laboratory Results Abnormal lab results 01/03/24 01/03/24 01/03/24 Range/Units 17:53 20:14 Unknown Potassium (3.5-5.1) mmol/L BUN (6-23) mg/dl Creatinine (0.6-1.4) mg/dl BUN/Creatinine Ratio (10-20) Glucose (70-99(Fasting)) mg/dl POC Glucose 109 H 197 H (70-99) mg/dl Urine Glucose (UA) 1+ H (Negative) 01/04/24 01/04/24 Range/Units 08:16 08:28 Potassium 5.3 H (3.5-5.1) mmol/L BUN 68 H (6-23) mg/dl Creatinine 2.20 H D (0.6-1.4) mg/dl BUN/Creatinine Ratio 30.9 H (10-20) Glucose 141 H (70-99(Fasting)) mg/dl POC Glucose 137 H (70-99) mg/dl Urine Glucose (UA) (Negative)
[2024-01-04] MEDS: oxyCODONE HCL IR 5 MG TAB (IMMEDIATE RELEASE) PO PRN (12:44)
--- NOTE | 2024-01-04 17:44 | Nephrology Progress Note ---
Date of Service January 04, 2024 Assessment & Plan (1) CARMEN (acute kidney injury): Plan: slightly worse stage I nonoliguric acute kidney injury. Baseline creatinine 1.3 late november. creat has uptrended since admission to 2.2 today in the setting of obligate diuresis chemistries ok though mild hyperkalemia today; mild vol OL. UA w/ 1+ glucose; no inflammation. would continue current lasix dose to minimize chnces of infection in LE Daily basic metabolic panel >K shoul dimprove w/ lasix but also changed to low k diet Continue NSAID avoidance and, unless lifesaving, avoid IV contrast - morphine on hold now d/t accumulation of morphine metabolites and renal failure, may want to consider alternative opioid if CARMEN worsens -defer renal u/s for now given back pain/challenges maneuvering but if uptrend continues may need this -needs strict I/O; pls reiterate w/ team Spent > 10 minutes reviewing pain mgt plan as I understand it w/ daughter, pt and updated big data analytics lead who will also come and speak w/ them. Further, reviewed care w/ hospitalist as well regarding pain med options, diuresis plan renal function and we are in agreement. (2) Stasis edema with ulcer of both lower extremities: Plan: likely multifactorial in setting of dependent limbs, NSAID use, ?sodium intake. wt 126.9 kg on 01/03 w/ lift scale -continue lasix dose 10 mg IV tid starting in AM 510; had 20 mg IV 01/02 -daily bmp -strict I/O -Agree with low-sodium diet continue 1.5 L fluid limit -needs daily LIFT scale weight -on doxycycline -where possible, use pain meds that do not increase edema; baclofen can cause edema at times so will monitor; lidocaine/morphine ok from this standpoint -compression as tolerated > ? tubigrips w/ cutout for lesions Admission and Anticipated Discharge Date Admission Date: December 31, 2023 Subjective seen on evening rounds. daughter at bedside. pt w/ severe frequent mm spasms very painful. LE edema unable to be assessed by him; not sob, no n/v; struggling to get much rest. daughter and pt both very concerned about pain control Review of Systems 2 Review of Systems: All systems reviewed & are unremarkable except as noted in Subjective Physical Exam 2 Constitutional: well developed, + acute distress (marked distress observed 2- 3X during interview), + morbidly obese and cooperative Eyes: EOM intact bilaterally ENMT: Ears: no external ear abnormality Nose: no external nose abnormality Mouth: + dry oral mucous membranes Neck: no nuchal rigidity Respiratory: normal respiratory effort Auscultation: + diminished lung sounds Cardiovascular: Rate/Rhythm: regular rate and regular rhythm Extremities: + edema (2-3+ pedal/ankles wrapped) Gastrointestinal (Abdomen): Inspection/Auscultation: normal bowel sounds P ercussion/Palpation: abdomen soft; abdomen nontender Musculoskeletal: Extremities: strength 5/5 throughout Skin: RLE > LLE oozing through bandages Psychiatric: Orientation: alert and oriented x 3 Results & Data Vital Signs (Past 12 Hours) Vital Signs Temp Pulse Resp BP Pulse Ox O2 Del Method 01/04/24 11:25 36.5 C 57 L 18 149/76 H 96 Room Air 01/04/24 07:56 36.7 C 84 18 139/82 97 Room Air 01/04/24 07:46 Room Air Laboratory Results 01/03/24 06:25 01/04/24 08:28
[2024-01-05] MEDS: LORazepam 0.25 MG in SYRINGE 0.125 ML IV STA (04:10)
[2024-01-05 08:34] LABS: Hematocrit (blood only) 33.1 % (42.0-52.0); Hemoglobin 10.7 g/dl (14.0-18.0); Mean Corpuscular Hemoglobin 28.3 pg (25.0-34.0); Mean Corpuscular Hgb Conc 32.3 g/dL (32.0-36.0); Mean Corpuscular Volume 87.6 fL (80.0-100.0); Platelet Count 270 K/uL (130-400); RDW Coefficient of Variation 13.2 % (11.5-14.5); RDW Standard Deviation 42.2 fL (36.4-46.3); Red Blood Count 3.78 M/uL (4.70-6.10); White Blood Count 6.23 K/ul (4.8-10.8)
[2024-01-05 08:59] LABS: BUN Creatinine Ratio 36.6 (10-20); Creatinine Clr Calc Pharmacy 61.8 ml/min; Est GFR (African American) 53.4 ml/min; Potassium 4.4 mmol/L (3.5-5.1)
--- NOTE | 2024-01-05 12:28 | Orthopedic Progress Note ---
Date of Service January 05, 2024 Subjective Still presenting with left-sided low back pain spasms initially improved with utilization of Valium. Nurse reports that the patient was able to get at least some limited sleep last night. Incision site is unremarkable, no focal motor weakness. Impression: Status post L4-5 decompression and fusion from December 17, approaching 3 weeks out with recurrent left lumbosacral spine spasms. Plan: Review of radiographs do not reveal any abnormalities, operative site is unremarkable. I discussed with the nurse and the patient that we will continue with the medications until he becomes more functional, may be necessary for him to go to rehab eventually to keep him mobile. I related the patient that I do believe the spasms will eventually resolve, but it might take time and medication. Review of Systems All systems reviewed & are unremarkable except as noted in HPI & below. Physical Exam . Results & Data Results & Data Laboratory Results . Diagnostic Findings . PG Care Time/CCT Total # of Minutes Spent Total Time Spent with Patient: Total time spent is greater than 50% in coordination of care (as documented) at patient's floor/unit and/or counseling patient: Coding Level of Care Code 72638 SUB INP/OBS CARE 09/20MIN
--- NOTE | 2024-01-05 13:06 | Hospitalist Progress Note ---
Date of Service January 05, 2024 Assessment & Plan (1) Status post lumbar spine surgery for decompression of spinal cord: (2) Stasis edema with ulcer of both lower extremities: (3) Diabetes mellitus, type 2: (4) Hypertension: Plan 68-year-old male has significant past medical history of T2DM, HTN, BPH who follows with family practice in [place]. Recently hospitalized on 12/17 to 12/19 and underwent an elective lumbar surgical procedure ( L4-L5 lumbar decompression and fusion) with Dr. Paiz. Patient's postoperative course since discharge has been complicated with ambulatory dysfunction secondary to low back pain and muscle spasm and mostly being in the seated position due to inability to lay flat in bed. Ambulatory dysfunction Recurrent spasms, back pain H/O L4-L5 lumbar decompression fusion on 12/18/[address] Paiz --Lumbar X ray:No lumbar spine fractures. Stable postoperative findings following L4-L5 decompression and fusion. Continue oxycodone prn CrCl improved to 61 today. Had been on baclofen prn spasm Ortho spine added valium prn. Patient had reported some improvement with the valium Reduce valium prn and baclofen prn considering drowsiness. Discussed with RN. Not to use at same time Monitor for med side effects Pain mgt recs appreciated Ortho recs appreciated Counseled patient on need for activity He had been declining PT/OT B/L lower extremity stasis edema with ulceration Likely due to venous stasis, Pioglitazone --Venous Doppler:Exam is limited but no DVT is seen. The left leg could not be evaluated due to patient intolerance. Right greater saphenous vein, profunda, peroneal, and anterior tibial veins were not visualized. Soft tissue edema is noted in the leg. --ECHO:Moderate concentric LVH. No regional wall motion abnormality. EF 65 to 70%. 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 May need a different antidiabetic regimen BPH: Continue Tamsulosin Morbid Obesity BMI 40 Lifestyle modification education provided DVT Px: Lovenox SQ Code Status: Full Code Called daughter and updated her I spent a total of 40 minutes coordinating, documenting and providing care for this patient excluding time spent in performance of separately billed services Admission and Anticipated Discharge Date Admission Date: December 31, 2023 Subjective Patient seen and examined Laying in bed Still reporting left low back muscle spasms that affects activity and sleep RN reported he was able to lay down and get some sleep last night Physical Exam Constitutional: + well hydrated; no acute distress Eyes: PERRL, conjunctivae normal, anicteric sclerae ENMT: external ear and nose normal, oropharynx normal Respiratory: normal respiratory effort, lungs clear to auscultation Cardiovascular: Rate/Rhythm: regular rate and regular rhythm Gastrointestinal (Abdomen): normal bowel sounds, soft, nontender, no hepatosplenomegaly Musculoskeletal: B/L pedal edema leg ulcer Neurologic: PERRL, EOMI, accommodation nl, no face palsy, no dysarthria Drowsy but arousable Psychiatric: A+Ox3, euthymic affect Results & Data Results & Data Vital Signs (Past 12 Hours) Vital Signs Temp Pulse Pulse Resp BP Pulse Ox O2 Del Method 01/05/24 12:36 36.7 C 82 17 192/67 H 95 Room Air 01/05/24 07:48 103 H 01/05/24 07:33 36.6 C 92 H 16 114/56 L 94 Room Air 01/05/24 01:47 Room Air Laboratory Results Abnormal lab results 01/04/24 01/04/24 01/05/24 Range/Units 17:17 20:29 08:08 RBC 3.78 L (4.70-6.10) M/uL Hgb 10.7 L (14.0-18.0) g/dl Hct 33.1 L (42.0-52.0) % BUN 56 H (6-23) mg/dl Creatinine 1.53 H D (0.6-1.4) mg/dl BUN/Creatinine Ratio 36.6 H (10-20) Glucose 146 H (70-99(Fasting)) mg/dl POC Glucose 116 H 128 H (70-99) mg/dl 01/05/24 01/05/24 Range/Units 08:14 12:39 RBC (4.70-6.10) M/uL Hgb (14.0-18.0) g/dl Hct (42.0-52.0) % BUN (6-23) mg/dl Creatinine (0.6-1.4) mg/dl BUN/Creatinine Ratio (10-20) Glucose (70-99(Fasting)) mg/dl POC Glucose 139 H 115 H (70-99) mg/dl
--- NOTE | 2024-01-05 14:45 | Nephrology Progress Note ---
Date of Service January 05, 2024 Assessment & Plan (1) CARMEN (acute kidney injury): Plan: improving stage I nonoliguric acute kidney injury. Baseline creatinine 1.3 late november. creat uptrended from 1.6 at admission 01/01, peaked at 2.2 on 01/03, down to 1.5 01/04. chemistries ok ; mild vol OL. UA w/ 1+ glucose; no inflammation. would continue current lasix dose to minimize chnces of infection in LE Daily basic metabolic panel -continue to hold lisinopril for now >continue low dose /frequent lasix 10 mg tidM IV Continue NSAID avoidance and, unless lifesaving, avoid IV contrast - morphine on hold now d/t accumulation of morphine metabolites and renal failure, may want to consider alternative opioid if CARMEN worsens -needs strict I/O; pls reiterate w/ team Will sign off. NEPHRO D/C RECS -depending on renal function, may need to hold lisinopril until after pcp visit post d/c -no OP neph f/u needed -continue nsaid avoidance -continue standing then prn diuretics >low Na diet and 1.5 L FR at d/c >LE compression garments recommended when feasible (2) Stasis edema with ulcer of both lower extremities: Plan: likely multifactorial in setting of dependent limbs, NSAID use, ?sodium intake. wt 126.9 kg on 01/03 w/ lift scale -continue lasix dose 10 mg IV tid starting in AM 01/03; had 20 mg IV 01/02 -daily bmp -strict I/O -Agree with low-sodium diet continue 1.5 L fluid limit -needs daily LIFT scale weight -on doxycycline -where possible, use pain meds that do not increase edema; baclofen can cause edema at times so will monitor; lidocaine/morphine ok from this standpoint -compression as tolerated once lesions improve Admission and Anticipated Discharge Date Admission Date: December 31, 2023 Subjective still w/ severe mm spasms causing pain, immobility. minimal po. no sob, no n/v; denies voiding issues Review of Systems 2 Review of Systems: All systems reviewed & are unremarkable except as noted in Subjective Physical Exam 2 Constitutional: well developed, + acute distress (marked distress observed at times during interview), + morbidly obese and cooperative Eyes: EOM intact bilaterally ENMT: Ears: no external ear abnormality Nose: no external nose abnormality Mouth: + dry oral mucous membranes Neck: no nuchal rigidity Respiratory: normal respiratory effort Auscultation: + diminished lung sounds Cardiovascular: Rate/Rhythm: regular rate and regular rhythm Extremities: + edema (1+ pedal/ankles wrapped) Gastrointestinal (Abdomen): Inspection/Auscultation: normal bowel sounds P ercussion/Palpation: abdomen soft; abdomen nontender Musculoskeletal: Extremities: strength 5/5 throughout Skin: no rashes, warm and dry Psychiatric: Orientation: alert and oriented x 3 Results & Data Vital Signs (Past 12 Hours) Vital Signs Temp Pulse Pulse Resp BP Pulse Ox O2 Del Method 01/05/24 12:36 36.7 C 82 17 192/67 H 95 Room Air 01/05/24 07:48 103 H 01/05/24 07:33 36.6 C 92 H 16 114/56 L 94 Room Air Laboratory Results 01/05/24 08:08 01/05/24 08:08
[2024-01-05] MEDS: LANTUS PER UNIT CHARGE SQ SCH (21:58)
[2024-01-06] MEDS: diazePAM 5 MG TABLET PO PRN (03:23)
[2024-01-06 06:35] LABS: BUN Creatinine Ratio 31.5 (10-20); Calcium 9.3 mg/dl (8.6-10.3); Creatinine Clr Calc Pharmacy 62.8 ml/min; Est GFR (African American) 55.1 ml/min; Est GFR (Non-African American) 47.5 ml/min; Potassium 4.6 mmol/L (3.5-5.1)
--- NOTE | 2024-01-06 11:14 | Hospitalist Progress Note ---
Date of Service January 06, 2024 Assessment & Plan (1) Status post lumbar spine surgery for decompression of spinal cord: (2) Stasis edema with ulcer of both lower extremities: (3) Diabetes mellitus, type 2: (4) Hypertension: Plan 68-year-old male has significant past medical history of T2DM, HTN, BPH who follows with family practice in [place]. Recently hospitalized on 12/17 to 12/19 and underwent an elective lumbar surgical procedure ( L4-L5 lumbar decompression and fusion) with Dr. Paiz. Patient's postoperative course since discharge has been complicated with ambulatory dysfunction secondary to low back pain and muscle spasm and mostly being in the seated position due to inability to lay flat in bed. Ambulatory dysfunction Recurrent spasms, back pain H/O L4-L5 lumbar decompression fusion on 12/18/[address] Paiz --Lumbar X ray:No lumbar spine fractures. Stable postoperative findings following L4-L5 decompression and fusion. Valium prn and baclofen prn were reduced due to side effects Oxycodone reduced to q6h prn Confusion resolved Plan to wean off valium and use baclofen more. RN aware Pain mgt recs appreciated Ortho recs appreciated Counseled patient on need for activity PT/OT Daughter wants patient to go to rehab. CM will follow up in AM B/L lower extremity stasis edema with ulceration Likely due to venous stasis, Pioglitazone --Venous Doppler:Exam is limited but no DVT is seen. The left leg could not be evaluated due to patient intolerance. Right greater saphenous vein, profunda, peroneal, and anterior tibial veins were not visualized. Soft tissue edema is noted in the leg. --ECHO:Moderate concentric LVH. No regional wall motion abnormality. EF 65 to 70%. CARMEN Cr continues to improve. Now 1.49 from peak of 2.2 Neurophysiologist recs noted Continue to hold lisinopril for now Continue doxycycline for possible cellulitis Continue wound care Pioglitazone discontinued in view of Leg edema, LVH on TTE HTN: Home lisinopril on hold for now due to CARMEN Start low dose amlodipine for now NIDDM2: Chronic Takes Actos and Glipizide at home Hold home meds Continue Insulin while inpatient HbA1C: 8.9 on 12/03 Plan to stop pioglitazone on dc. May need a different antidiabetic regimen BPH: Continue Tamsulosin Morbid Obesity BMI 40 Lifestyle modification education provided DVT Px: Lovenox SQ Code Status: Full Code I spent a total of 40 minutes coordinating, documenting and providing care for this patient excluding time spent in performance of separately billed services Admission and Anticipated Discharge Date Admission Date: December 31, 2023 Subjective Patient seen and examined. Patient is more alert, oriented and interactive today. Ambulating with walker into the bathroom and back. Reports muscle stiffness. Reports intermittent spasms. Daughter at bedside acknowledged that patient's is feeling and doing better today Physical Exam Constitutional: + well hydrated; no acute distress Eyes: PERRL, conjunctivae normal, anicteric sclerae ENMT: external ear and nose normal, oropharynx normal Respiratory: normal respiratory effort, lungs clear to auscultation Cardiovascular: Rate/Rhythm: regular rate and regular rhythm Gastrointestinal (Abdomen): normal bowel sounds, soft, nontender, no hepatosplenomegaly Musculoskeletal: +pedal edema (improved) Dressing over ulcer Neurologic: PERRL, EOMI, accommodation nl, no face palsy, no dysarthria Psychiatric: A+Ox3, euthymic affect Results & Data Results & Data Vital Signs (Past 12 Hours) Vital Signs Temp Pulse Pulse Resp BP Pulse Ox O2 Del Method 01/06/24 09:15 Room Air 01/06/24 08:11 37.0 C 82 18 163/83 H 97 Room Air 01/06/24 07:13 75 01/06/24 04:02 36.8 C 85 20 122/64 95 Room Air 01/05/24 23:41 37 C 80 16 151/70 H 96 Room Air 01/05/24 23:37 Room Air Laboratory Results Abnormal lab results 01/05/24 01/05/24 01/06/24 Range/Units 17:13 20:19 05:36 BUN 47 H (6-23) mg/dl Creatinine 1.49 H (0.6-1.4) mg/dl BUN/Creatinine Ratio 31.5 H (10-20) Glucose 148 H (70-99(Fasting)) mg/dl POC Glucose 153 H 195 H (70-99) mg/dl 01/06/24 01/06/24 Range/Units 08:27 12:18 BUN (6-23) mg/dl Creatinine (0.6-1.4) mg/dl BUN/Creatinine Ratio (10-20) Glucose (70-99(Fasting)) mg/dl POC Glucose 147 H 194 H (70-99) mg/dl
--- NOTE | 2024-01-06 11:30 | Orthopedic Progress Note ---
Date of Service January 06, 2024 Subjective Pt seen and examined, feeling improved, sitting up in bed and in less pa in/spasm. Motor intact, incision unremarkable. Impression/plan: Talked with patient and daughter, he appears to be making some progress. Will continue present course and DC planning to home or rehab. Review of Systems All systems reviewed & are unremarkable except as noted in HPI & below. Physical Exam . Results & Data Results & Data Laboratory Results . Diagnostic Findings . PG Care Time/CCT Total # of Minutes Spent Total Time Spent with Patient: Total time spent is greater than 50% in coordination of care (as documented) at patient's floor/unit and/or counseling patient: Coding Level of Care Code 47975 SUB INP/OBS CARE 09/20MIN
[2024-01-06] MEDS: BACLOFEN 10 MG TAB PO PRN (12:58)
[2024-01-06] MEDS: amLODIPine BESYLATE 5 MG TAB PO ONE (17:34)
[2024-01-06] MEDS: oxyCODONE HCL IR 5 MG TAB (IMMEDIATE RELEASE) PO PRN (21:53)
[2024-01-07 07:13] LABS: BUN Creatinine Ratio 28.3 (10-20); Calcium 9.2 mg/dl (8.6-10.3); Creatinine Clr Calc Pharmacy 63.7 ml/min; Est GFR (African American) 56.9 ml/min; Est GFR (Non-African American) 49.1 ml/min; Potassium 4.4 mmol/L (3.5-5.1)
[2024-01-07] MEDS: amLODIPine BESYLATE 5 MG TAB PO SCH (08:49)
--- NOTE | 2024-01-07 12:11 | Hospitalist Progress Note ---
Date of Service January 07, 2024 Assessment & Plan (1) Status post lumbar spine surgery for decompression of spinal cord: (2) Stasis edema with ulcer of both lower extremities: (3) Diabetes mellitus, type 2: (4) Hypertension: Plan 68-year-old male has significant past medical history of T2DM, HTN, BPH who follows with family practice in [place]. Recently hospitalized on 12/17 to 12/19 and underwent an elective lumbar surgical procedure ( L4-L5 lumbar decompression and fusion) with Dr. Paiz. Patient's postoperative course since discharge has been complicated with ambulatory dysfunction secondary to low back pain and muscle spasm and mostly being in the seated position due to inability to lay flat in bed. Ambulatory dysfunction Recurrent spasms, back pain H/O L4-L5 lumbar decompression fusion on 12/18/[address] Paiz --Lumbar X ray:No lumbar spine fractures. Stable postoperative findings following L4-L5 decompression and fusion. Continue baclofen prn which were reduced due to side effects Stop valium Pain mgt recs appreciated Ortho recs appreciated Counseled patient on need for activity PT/OT Daughter wants patient to go to rehab. CM will follow up B/L lower extremity stasis edema with ulceration Likely due to venous stasis, Pioglitazone --Venous Doppler:Exam is limited but no DVT is seen. The left leg could not be evaluated due to patient intolerance. Right greater saphenous vein, profunda, peroneal, and anterior tibial veins were not visualized. Soft tissue edema is noted in the leg. --ECHO:Moderate concentric LVH. No regional wall motion abnormality. EF 65 to 70%. CARMEN Cr continues to improve. 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 May need a different antidiabetic regimen BPH: Continue Tamsulosin Morbid Obesity BMI 40 Lifestyle modification education provided DVT Px: Lovenox SQ Code Status: Full Code I spent a total of 40 minutes coordinating, documenting and providing care for this patient excluding time spent in performance of separately billed services Admission and Anticipated Discharge Date Admission Date: December 31, 2023 Subjective Patient seen and examined. Reports feeling better today Stated he has less spasms today Denied any other new complaints Physical Exam Constitutional: + well hydrated; no acute distress Eyes: PERRL, conjunctivae normal, anicteric sclerae ENMT: external ear and nose normal, oropharynx normal Respiratory: normal respiratory effort, lungs clear to auscultation Cardiovascular: Rate/Rhythm: regular rate and regular rhythm Gastrointestinal (Abdomen): normal bowel sounds, soft, nontender, no hepatosplenomegaly Musculoskeletal: Pedal edema. Dressing over leg ulcer Neurologic: PERRL, EOMI, accommodation nl, no face palsy, no dysarthria Psychiatric: A+Ox3, euthymic affect Results & Data Results & Data Vital Signs (Past 12 Hours) Vital Signs Temp Pulse Pulse Resp BP BP Pulse Ox 01/07/24 07:57 36.8 C 82 16 138/80 97 01/07/24 07:09 82 01/07/24 03:45 37.4 C 52 L 18 124/70 93 O2 Del Method 01/07/24 07:57 Room Air 01/07/24 07:09 01/07/24 03:45 Room Air Laboratory Results Abnormal lab results 01/06/24 01/06/24 01/07/24 Range/Units 17:04 20:01 05:57 Chloride 108 H (98-107) mmol/L BUN 41 H (6-23) mg/dl Creatinine 1.45 H (0.6-1.4) mg/dl BUN/Creatinine Ratio 28.3 H (10-20) Glucose 168 H (70-99(Fasting)) mg/dl POC Glucose 138 H 172 H (70-99) mg/dl 01/07/24 01/07/24 Range/Units 08:06 12:17 Chloride (98-107) mmol/L BUN (6-23) mg/dl Creatinine (0.6-1.4) mg/dl BUN/Creatinine Ratio (10-20) Glucose (70-99(Fasting)) mg/dl POC Glucose 178 H 185 H (70-99) mg/dl
--- NOTE | 2024-01-07 17:03 | Orthopedic Progress Note ---
Date of Service January 07, 2024 Subjective Pt seen and examined, continues to feel improved versus yesterday, moving around more, sitting up in bed and in less pain/spasm. Motor intact, incision unremarkable, less edema in lower extremities Impression/plan: I talked with the patient, once again as he continues to improve I noted to him that if he gets to a certain point he still may be able to get home but if not rehab might be the best next step to make sure he continues to maintain an ambulatory state. Will continue to monitor. Review of Systems All systems reviewed & are unremarkable except as noted in HPI & below. Physical Exam . Results & Data Results & Data Laboratory Results . Diagnostic Findings . PG Care Time/CCT Total # of Minutes Spent Total Time Spent with Patient: Total time spent is greater than 50% in coordination of care (as documented) at patient's floor/unit and/or counseling patient: Coding Level of Care Code 26344 SUB INP/OBS CARE 09/20MIN
[2024-01-08 08:39] LABS: BUN Creatinine Ratio 31.7 (10-20); Calcium 9.4 mg/dl (8.6-10.3); Creatinine Clr Calc Pharmacy 65.1 ml/min; Est GFR (African American) 58.4 ml/min; Est GFR (Non-African American) 50.4 ml/min; Magnesium 1.9 mg/dl (1.7-2.4); Phosphorus 3.1 mg/dl (2.5-4.9); Potassium 4.4 mmol/L (3.5-5.1)
--- NOTE | 2024-01-08 10:09 | Hospitalist Progress Note ---
Date of Service January 08, 2024 Assessment & Plan (1) Status post lumbar spine surgery for decompression of spinal cord: (2) Stasis edema with ulcer of both lower extremities: (3) Diabetes mellitus, type 2: (4) Hypertension: Plan 68-year-old male has significant past medical history of T2DM, HTN, BPH who follows with family practice in [place]. Recently hospitalized on 12/17 to 12/19 and underwent an elective lumbar surgical procedure ( L4-L5 lumbar decompression and fusion) with Dr. Paiz. Patient's postoperative course since discharge has been complicated with ambulatory dysfunction secondary to low back pain and muscle spasm and mostly being in the seated position due to inability to lay flat in bed. Ambulatory dysfunction Recurrent spasms, back pain H/O L4-L5 lumbar decompression fusion on 12/18/[address] Paiz --Lumbar X ray:No lumbar spine fractures. Stable postoperative findings following L4-L5 decompression and fusion. Continue baclofen prn which were reduced due to side effects Valium had been stopped Pain mgt recs appreciated Ortho recs appreciated PT/OT eval noted CM working on rehab placement B/L lower extremity stasis edema with ulceration Likely due to venous stasis, Pioglitazone --Venous Doppler:Exam is limited but no DVT is seen. The left leg could not be evaluated due to patient intolerance. Right greater saphenous vein, profunda, peroneal, and anterior tibial veins were not visualized. Soft tissue edema is noted in the leg. --ECHO:Moderate concentric LVH. No regional wall motion abnormality. EF 65 to 70%. CARMEN Cr continues to improve. Now 1.42 from peak of 2.2 Brake Tester recs noted Continue to hold lisinopril for now. May need to hold Lisinopril till PCP follow up Avoid NSAIDS Continue doxycycline for possible cellulitis. Will complete today Continue wound care Pioglitazone discontinued in view of Leg edema, LVH on TTE HTN: Home lisinopril on hold for now due to CARMEN BP better controlled with amlodipine started inpatient NIDDM2: Chronic Takes Actos and Glipizide at home Hold home meds Continue Insulin while inpatient HbA1C: 8.9 on 12/03 Plan to stop pioglitazone on dc. May need a different antidiabetic regimen BPH: Continue Tamsulosin Morbid Obesity BMI 40 Lifestyle modification education provided DVT Px: Lovenox SQ Code Status: Full Code I spent a total of 40 minutes coordinating, documenting and providing care for this patient excluding time spent in performance of separately billed services Admission and Anticipated Discharge Date Admission Date: December 31, 2023 Subjective Patient seen and examined. Reports feeling better today Reports reduced freq of spasms Denied any other complaints Physical Exam Constitutional: + well hydrated; no acute distress Eyes: PERRL, conjunctivae normal, anicteric sclerae ENMT: external ear and nose normal, oropharynx normal Respiratory: normal respiratory effort, lungs clear to auscultation Cardiovascular: Rate/Rhythm: regular rate and regular rhythm S1 S2 Gastrointestinal (Abdomen): normal bowel sounds, soft, nontender, no hepatosplenomegaly Musculoskeletal: +pedal edema. Dressing over leg ulcers Neurologic: PERRL, EOMI, accommodation nl, no face palsy, no dysarthria Psychiatric: A+Ox3, euthymic affect Results & Data Results & Data Vital Signs (Past 12 Hours) Vital Signs Temp Pulse Pulse Resp BP BP Pulse Ox 01/08/24 07:30 36.7 C 75 18 150/86 H 97 01/08/24 07:04 79 01/08/24 03:27 36.8 C 72 20 137/73 98 01/07/24 23:40 71 01/07/24 22:39 36.8 C 73 18 128/78 99 01/07/24 22:27 O2 Del Method 01/08/24 07:30 Room Air 01/08/24 07:04 01/08/24 03:27 Room Air 01/07/24 23:40 01/07/24 22:39 Room Air 01/07/24 22:27 Room Air Laboratory Results Abnormal lab results 01/07/24 01/07/24 01/08/24 Range/Units 17:05 20:12 06:39 BUN 45 H (6-23) mg/dl Creatinine 1.42 H (0.6-1.4) mg/dl BUN/Creatinine Ratio 31.7 H (10-20) Glucose 159 H (70-99(Fasting)) mg/dl POC Glucose 115 H 201 H (70-99) mg/dl 01/08/24 01/08/24 Range/Units 08:02 12:08 BUN (6-23) mg/dl Creatinine (0.6-1.4) mg/dl BUN/Creatinine Ratio (10-20) Glucose (70-99(Fasting)) mg/dl POC Glucose 164 H 208 H (70-99) mg/dl
[2024-01-09 08:27] LABS: BUN Creatinine Ratio 32.4 (10-20); Calcium 9.4 mg/dl (8.6-10.3); Creatinine Clr Calc Pharmacy 62.2 ml/min; Est GFR (African American) 55.6 ml/min; Est GFR (Non-African American) 47.9 ml/min; Potassium 4.2 mmol/L (3.5-5.1)
[2024-01-09] MEDS: DOCUSATE SODIUM/SENNA 50/8.6MG TAB PO SCH (08:54)
[2024-01-09] MEDS ORDERED: FUROSEMIDE 20 MG TAB PO PRN (12:38)
--- NOTE | 2024-01-09 17:07 | Hospitalist Progress Note ---
Date of Service January 09, 2024 Assessment & Plan (1) Status post lumbar spine surgery for decompression of spinal cord: (2) Stasis edema with ulcer of both lower extremities: (3) Diabetes mellitus, type 2: (4) Hypertension: Plan 68-year-old male has significant past medical history of T2DM, HTN, BPH who follows with family practice in [place]. Recently hospitalized on 12/17 to 12/19 and underwent an elective lumbar surgical procedure ( L4-L5 lumbar decompression and fusion) with Dr. Paiz. Patient's postoperative course since discharge has been complicated with ambulatory dysfunction secondary to low back pain and muscle spasm and mostly being in the seated position due to inability to lay flat in bed. Ambulatory dysfunction Recurrent spasms, back pain H/O L4-L5 lumbar decompression fusion on 12/18/[address] Paiz --Lumbar X ray:No lumbar spine fractures. Stable postoperative findings following L4-L5 decompression and fusion. Continue baclofen prn Valium discontinued Appreciate pain management, orthopedics input PT/OT eval: Recommends rehab Likely discharge to rehab facility tomorrow B/L lower extremity stasis edema with ulceration Likely due to venous stasis, Pioglitazone, NSAIDs use --Venous Doppler:Exam is limited but no DVT is seen. The left leg could not be evaluated due to patient intolerance. Right greater saphenous vein, profunda, peroneal, and anterior tibial veins were not visualized. Soft tissue edema is noted in the leg. --ECHO:Moderate concentric LVH. No regional wall motion abnormality. EF 65 to 70%. -- Received IV Lasix Will add Lasix as needed Monitor volume status Completed doxycycline for possible cellulitis Continue wound care Plan to discontinue pioglitazone on discharge CARMEN Cr continues to improve Continue to hold lisinopril for now Avoid NSAIDS Cr 1.4 today Monitor renal function HTN: Home lisinopril on hold due to CARMEN Started on amlodipine Monitor NIDDM2: Chronic Takes Actos and Glipizide at home Hold home meds Continue Insulin while inpatient Last HbA1C: 8.9 Plan to stop pioglitazone on dc. May need a different antidiabetic regimen BPH: Continue Tamsulosin Morbid Obesity BMI 40 Lifestyle modification education provided DVT Px: Lovenox SQ Code Status: Full Code Disposition SNF likely tomorrow Admission and Anticipated Discharge Date Admission Date: December 31, 2023 Subjective Patient is seen and examined at bedside States having intermittent spasms, hip pain Leg edema improved No other new complaints Waiting for rehab placement Denies any chest pain, dyspnea, dizziness, nausea, vomiting, abdominal pain Review of Systems Review of Systems: All systems reviewed & are unremarkable except as noted in Subjective Physical Exam Physical Exam: Physical Exam: Vitals signs as noted above General Appearance:Morbidly Obese, no apparent distress Head: normocephalic, Atraumatic Eyes: normal inspection, EOMI Neck: supple, Trachea midline Respiratory/Chest: Normal breath sounds, CTA, No accessory muscle use Cardiovascular: S1, S2, No murmur Abdomen/GI:Soft, Non tender, Bowel sounds present Extremities/Musculoskeletal:normal inspection, Trace LE edema, +Ulcerations B/L LE in dressing Neurologic/Psych:AAOX3, grossly no focal neurological deficits Skin: normal color, warm Results & Data Results & Data Vital Signs (Past 12 Hours) Vital Signs Temp Pulse Pulse Resp BP Pulse Ox O2 Del Method 01/09/24 15:52 36.5 C 85 16 151/75 H 99 Room Air 01/09/24 15:36 74 01/09/24 11:38 37.0 C 75 16 120/76 98 Room Air 01/09/24 09:06 Room Air 01/09/24 07:57 36.5 C 77 18 170/81 H 93 Room Air 01/09/24 07:19 80 Laboratory Results [facility] 01/09/24 07:13 Sodium 138 Potassium 4.2 Chloride 106 Carbon Dioxide 24 BUN 48 H Creatinine 1.48 H Glucose 188 H Calcium 9.4
[2024-01-10] MEDS: POLYETHYLENE (MIRALAX) 17 GM PACK PO PRN (08:16)
--- NOTE | 2024-01-10 08:58 | Hospitalist Progress Note ---
Date of Service January 10, 2024 Assessment & Plan (1) Status post lumbar spine surgery for decompression of spinal cord: (2) Stasis edema with ulcer of both lower extremities: (3) Diabetes mellitus, type 2: (4) Hypertension: Plan 68-year-old male has significant past medical history of T2DM, HTN, BPH who follows with family practice in [place]. Recently hospitalized on 12/17 to 12/19 and underwent an elective lumbar surgical procedure ( L4-L5 lumbar decompression and fusion) with Dr. Paiz. Patient's postoperative course since discharge has been complicated with ambulatory dysfunction secondary to low back pain and muscle spasm and mostly being in the seated position due to inability to lay flat in bed. Ambulatory dysfunction Recurrent spasms, back pain H/O L4-L5 lumbar decompression fusion on 12/18/[address] Paiz --Lumbar X ray:No lumbar spine fractures. Stable postoperative findings following L4-L5 decompression and fusion. Continue baclofen prn Valium discontinued Appreciate pain management, orthopedics input PT/OT eval: Recommends rehab Plan to discharge to rehab facility today Advised to follow-up with orthopedics on discharge B/L lower extremity stasis edema with ulceration Likely due to venous stasis, Pioglitazone, NSAIDs use --Venous Doppler:Exam is limited but no DVT is seen. The left leg could not be evaluated due to patient intolerance. Right greater saphenous vein, profunda, peroneal, and anterior tibial veins were not visualized. Soft tissue edema is noted in the leg. --ECHO:Moderate concentric LVH. No regional wall motion abnormality. EF 65 to 70%. -- Received IV Lasix Will add Lasix as needed Monitor volume status Completed doxycycline for possible cellulitis Continue wound care Plan to discontinue pioglitazone on discharge CARMEN Cr continues to improve Continue to hold lisinopril for now Avoid NSAIDS Cr 1.4 today Monitor renal function HTN: Home lisinopril on hold due to CARMEN Started on amlodipine Monitor NIDDM2: Chronic Takes Actos and Glipizide at home Hold home meds Continue Insulin while inpatient Last HbA1C: 8.9 Plan to stop pioglitazone on dc Added low-dose Lantus for now BPH: Continue Tamsulosin Morbid Obesity BMI 40 Lifestyle modification education provided DVT Px: Lovenox SQ Code Status: Full Code Disposition SNF Admission and Anticipated Discharge Date Admission Date: December 31, 2023 Subjective Patient is seen and examined at bedside Leg spasms, pain better today Denies any chest pain, dyspnea, dizziness, nausea, vomiting, abdominal pain Plan to be discharged to rehab facility today Review of Systems Review of Systems: All systems reviewed & are unremarkable except as noted in Subjective Physical Exam Physical Exam: Physical Exam: Vitals signs as noted above General Appearance:Morbidly Obese, no apparent distress Head: normocephalic, Atraumatic Eyes: normal inspection, EOMI Neck: supple, Trachea midline Respiratory/Chest: Normal breath sounds, CTA, No accessory muscle use Cardiovascular: S1, S2, No murmur Abdomen/GI:Soft, Non tender, Bowel sounds present Extremities/Musculoskeletal:normal inspection, Trace LE edema, +Ulcerations B/L LE in dressing Neurologic/Psych:AAOX3, grossly no focal neurological deficits Skin: normal color, warm Results & Data Results & Data Vital Signs (Past 12 Hours) Vital Signs Temp Pulse Pulse Resp BP BP Pulse Ox 01/10/24 07:56 36.9 C 86 16 182/75 H 96 01/10/24 07:01 76 01/10/24 03:22 36.8 C 74 20 139/65 100 01/09/24 23:49 77 01/09/24 22:40 01/09/24 22:26 36.8 C 79 22 137/73 98 O2 Del Method 01/10/24 07:56 Room Air 01/10/24 07:01 01/10/24 03:22 Room Air 01/09/24 23:49 01/09/24 22:40 Room Air 01/09/24 22:26 Room Air
--- NOTE | 2024-01-10 13:14 | Discharge Summary ---
Date of Service January 10, 2024 Admission HPI Per Admitting Provider This is a 68-year-old male has significant past medical history of T2DM, HTN, BPH who follows with family practice in [place]. Of significance he was recently hospitalized on 12/17 to 12/19 and underwent an elective lumbar surgical procedure with Dr. Paiz. He underwent an L4-L5 lumbar decompression and fusion and tolerated the procedure well. His postoperative course was unremarkable. He was discharged to home. He presents back to ED today secondary to Bilateral lower extremity swelling. He states that the swelling started approximately 2 days ago. He reports being discharged December 19 after having back surgery. Since being discharged home he has been having increased pain to his low back. He specifically describes his pain as, "spasms." When it comes on is very sharp and shooting and rated a 20 out of 10. He has run out of his oxycodone. Due to pain he has been mostly immobile sitting in an upright position. He is unable to lay flat due to pain. Since being discharged his legs have mostly been dependent the entire time. He has noted increased swelling to his lower extremities. He reports approximately 50 pound weight gain over the last 6 months since dealing with his lower back, but is unaware of any recent weight gain with the swelling. He is having clear fluid seep from his legs as well as some openings to his anterior aspect of his valenzuela as well as his toes due to the swelling. Due to increased swelling and pain he opted to present to ED. He denies any history of CHF. He denies any fever, chills, sweats, chest pain, shortness of breath, orthopnea, PND, nausea, vomiting, abdominal pain or changes bowel or urinary habits. In ED he remained hemodynamically stable although he was slightly hypertensive. His lab work was mostly unremarkable with an H&H stable at 12.7 and 39.9 and a creatinine of 1.23. He was hyperglycemic with a blood sugar of 234. He states all he ate today was an egg salad sandwich. Admission Exam Per Admitting Provider Constitutional: Obese, M, sitting in bedside chair, vitals as above, NAD, Eyes: PERRL, conjunctivae normal, anicteric sclerae ENMT: external ear and nose normal, oropharynx normal Neck: trachea midline, no thyromegaly normal visual inspection Respiratory: normal respiratory effort, lungs clear to auscultation, no wheeze, rales, rhonchi. Normal insp/exp effort, no accessory muscle use Cardiovascular: RRR, no murmur, +3 lower extremity edema extending up to proximal thigh, no confluent erythema but evidence of bulla ruputure from swe lling as well as unkempt toes/ulcer to dorsal aspect of toes seeping clear drainage Vessels: no JVD or carotid bruit Chest: normal inspection of chest Abdomen: protuberant abd, normal bowel sounds, soft, nontender, no hepatosplenomegaly Musculoskeletal: no cyanosis or clubbing, extremities motor strength 5/5 Skin: no rashes, warm and dry normal turgor , lumbar incision healing well, no surrounding erythema Neurologic: PERRL, EOMI, accommodation nl, no face palsy, no dysarthria CN's II-XI intact bilaterally and moves all extremities Psychiatric: A+Ox3, euthymic affect Lymphatic: no cervical or axillary lymphadenopathy : deferred Principal Diagnosis Ambulatory dysfunction Back Pain Acute kidney injury Discharge Data Allergies Allergy/AdvReac Type Severity Reaction Status Date / Time No Known Allergies Allergy Verified 12/31/23 17:22 Consultations 12/31/23 17:33 ED Decision to Admit Stat 01/01/24 08:23 Consult Orthopedic Surgery Routine 01/03/24 07:28 Consult Nephrology Routine 01/03/24 08:06 Consult Pain Management Routine Procedures Performed Laboratory Results WBC 6.23 K/ul (4.8-10.8) 01/05/24 08:08 RBC 3.78 M/uL (4.70-6.10) L 01/05/24 08:08 Hgb 10.7 g/dl (14.0-18.0) L 01/05/24 08:08 Hct 33.1 % (42.0-52.0) L 01/05/24 08:08 MCV 87.6 fL (80.0-100.0) 01/05/24 08:08 MCH 28.3 pg (25.0-34.0) 01/05/24 08:08 MCHC 32.3 g/dL (32.0-36.0) 01/05/24 08:08 RDW Std Deviation 42.2 fL (36.4-46.3) 01/05/24 08:08 RDW Coeff of Cali 13.2 % (11.5-14.5) 01/05/24 08:08 Plt Count 270 K/uL (130-400) 01/05/24 08:08 MPV 10.0 fL (9.4-12.4) 01/05/24 08:08 Immature Gran % (Auto) 0.9 % 12/31/23 14:44 Neut % (Auto) 62.0 % 12/31/23 14:44 Lymph % (Auto) 23.2 % 12/31/23 14:44 Greenlee % (Auto) 12.2 % 12/31/23 14:44 Eos % (Auto) 1.4 % 12/31/23 14:44 Baso % (Auto) 0.3 % 12/31/23 14:44 Neut # (Auto) 4.28 K/uL (1.40-6.50) 12/31/23 14:44 Lymph # (Auto) 1.60 K/uL (1.20-3.40) 12/31/23 14:44 Greenlee # (Auto) 0.84 K/uL (0.11-0.59) H 12/31/23 14:44 Eos # (Auto) 0.10 K/uL (0.00-0.50) 12/31/23 14:44 Baso # (Auto) 0.02 K/uL (0.00-0.20) 12/31/23 14:44 Immature Gran # (Auto) 0.06 K/uL (0.01-0.20) 12/31/23 14:44 PT 10.8 Seconds (9.0-12.0) 12/31/23 14:44 INR 1.0 (0.9-1.1) 12/31/23 14:44 APTT 24 Seconds (21-31) 12/31/23 14:44 PTT Ratio 0.9 12/31/23 14:44 Sodium 138 mmol/L (136-145) 01/09/24 07:13 Potassium 4.2 mmol/L (3.5-5.1) 01/09/24 07:13 Chloride 106 mmol/L (98-107) 01/09/24 07:13 Carbon Dioxide 24 mmol/L (21-32) 01/09/24 07:13 Anion Gap 8 (3-11) 01/09/24 07:13 BUN 48 mg/dl (6-23) H 01/09/24 07:13 Creatinine 1.48 mg/dl (0.6-1.4) H 01/09/24 07:13 Est Cr Clr Drug Dosing 62.2 ml/min 01/09/24 07:13 Est GFR ( Amer) 55.6 ml/min 01/09/24 07:13 Est GFR (Non-Af Amer) 47.9 ml/min 01/09/24 07:13 BUN/Creatinine Ratio 32.4 (10-20) H 01/09/24 07:13 Glucose 188 mg/dl (70-99(Fasting)) H 01/09/24 07:13 POC Glucose 168 mg/dl (70-99) H 01/10/24 08:28 Calcium 9.4 mg/dl (8.6-10.3) 01/09/24 07:13 Phosphorus 3.1 mg/dl (2.5-4.9) 01/08/24 06:39 Magnesium 1.9 mg/dl (1.7-2.4) 01/08/24 06:39 Total Bilirubin 0.4 mg/dl (0.2-1.0) 12/31/23 14:44 AST 31 U/L (13-39) 12/31/23 14:44 ALT 23 U/L (7-52) 12/31/23 14:44 Alkaline Phosphatase 137 U/L (34-104) H 12/31/23 14:44 Troponin I High Sens 11.6 pg/ml (0-20) 12/31/23 14:44 B-Natriuretic Peptide 28 pg/ml (0-100) 12/31/23 14:44 Total Protein 7.3 gm/dl (6.0-8.3) 12/31/23 14:44 Albumin 3.8 gm/dl (3.4-5.0) 12/31/23 14:44 Globulin 3.5 gm/dl (2.5-4.0) 12/31/23 14:44 Albumin/Globulin Ratio 1.1 (0.9-2) 12/31/23 14:44 Urine Color Yellow 01/03/24 Unknown Urine Appearance Clear (Clear) 01/03/24 Unknown Urine pH 5.0 (4.5-7.5) 01/03/24 Unknown Ur Specific Alpha 1.017 (1.000-1.030) 01/03/24 Unknown Urine Protein Negative (Negative) 01/03/24 Unknown Urine Glucose (UA) 1+ (Negative) H 01/03/24 Unknown Urine Ketones Negative (Negative) 01/03/24 Unknown Urine Blood Negative (Negative) 01/03/24 Unknown Urine Nitrite Negative (Negative) 01/03/24 Unknown Urine Bilirubin Negative (Negative) 01/03/24 Unknown Urine Urobilinogen Negative (Negative) 01/03/24 Unknown Ur Leukocyte Esterase Negative (Negative) 01/03/24 Unknown Impressions Chest X-Ray 12/31/23 14:07 XR chest 1V not portable CLINICAL HISTORY: Chest pain, nonspecific COMPARISON STUDY: Chest radiograph December 04, 2023. FINDINGS: Lung volumes are normal. Lungs are clear. There is no pneumothorax or pleural effusion. Moderate cardiomegaly is unchanged. Mediastinal contours are normal. There is no evidence for pulmonary edema. IMPRESSION: No acute cardiopulmonary findings. Cardiomegaly. ACT 112: Negative or not required by law. Electronically signed by: Juan Miguel Reddy M.D. 12/31/2023 3:56 PM Venous Doppler Study 12/31/23 15:26 US venous doppler LE RT CLINICAL HISTORY: swelling TECHNIQUE: Right lower extremity real-time compression venous ultrasound with Color Doppler imaging. Utilizing real-time ultrasonic imaging multiple real time high-resolution ultrasonic images with compression and noncompression maneuvers of the deep venous system in addition to color doppler imaging were performed from the common femoral vein through the proximal calf veins. COMPARISON: None available at the time of this dictation. FINDINGS/IMPRESSION: Exam is limited but no DVT is seen. The left leg could not be evaluated due to patient intolerance. Right greater saphenous vein, profunda, peroneal, and anterior tibial veins were not visualized. Soft tissue edema is noted in the leg. ACT 112: Negative or not required by law. Electronically signed by: Teddy King M.D. 12/31/2023 4:58 PM Lumbar Spine X-Ray 01/01/24 08:30 XR lumbar spine 2-3V CLINICAL HISTORY: Back Pain, Spasms COMPARISON STUDY: Lumbar spine MRI October 26, 2023. Fluoroscopic images of the lumbar spine December 18, 2023. FINDINGS: There are stable postoperative findings following L4-L5 discectomy, decompression and bilateral pedicle screw fusion. Hardware is intact. There are no lumbar spine fractures. Anterior osteophytosis of the lower thoracic and lumbar spine is again noted. There is mild multilevel disc space narrowing. There are no osseous lesions. IMPRESSION: 1. No lumbar spine fractures. 2. Stable postoperative findings following L4-L5 decompression and fusion. ACT 112: Negative or not required by law. Electronically signed by: Juan Miguel Reddy M.D. 01/01/2024 10:24 AM Ordered Studies 12/31/23 15:26 US venous doppler LE RT Stat Hospital Course (1) Status post lumbar spine surgery for decompression of spinal cord: (2) Stasis edema with ulcer of both lower extremities: (3) Diabetes mellitus, type 2: (4) Hypertension: Plan 68-year-old male has significant past medical history of T2DM, HTN, BPH who follows with family practice in [place]. Recently hospitalized on 12/17 to 12/19 and underwent an elective lumbar surgical procedure ( L4-L5 lumbar decompression and fusion) with Dr. Paiz. Patient's postoperative course since discharge has been complicated with ambulatory dysfunction secondary to low back pain and muscle spasm and mostly being in the seated position due to inability to lay flat in bed. Ambulatory dysfunction Recurrent spasms, back pain H/O L4-L5 lumbar decompression fusion on 12/18/[address] Paiz --Lumbar X ray:No lumbar spine fractures. Stable postoperative findings following L4-L5 decompression and fusion. Continue baclofen prn Valium discontinued Appreciate pain management, orthopedics input PT/OT eval: Recommends rehab Plan to discharge to rehab facility today Advised to follow-up with orthopedics on discharge B/L lower extremity stasis edema with ulceration Likely due to venous stasis, Pioglitazone, NSAIDs use --Venous Doppler:Exam is limited but no DVT is seen. The left leg could not be evaluated due to patient intolerance. Right greater saphenous vein, profunda, peroneal, and anterior tibial veins were not visualized. Soft tissue edema is noted in the leg. --ECHO:Moderate concentric LVH. No regional wall motion abnormality. EF 65 to 70%. -- Received IV Lasix Will add Lasix as needed Monitor volume status Completed doxycycline for possible cellulitis Continue wound care Plan to discontinue pioglitazone on discharge CARMEN Cr continues to improve Continue to hold lisinopril for now Avoid NSAIDS Cr 1.4 today Monitor renal function HTN: Home lisinopril on hold due to CARMEN Started on amlodipine Monitor NIDDM2: Chronic Takes Actos and Glipizide at home Hold home meds Continue Insulin while inpatient Last HbA1C: 8.9 Plan to stop pioglitazone on dc Added low-dose Lantus for now BPH: Continue Tamsulosin Morbid Obesity BMI 40 Lifestyle modification education provided DVT Px: Lovenox SQ Code Status: Full Code Disposition SNF Total Time Total Time Spent Total Time Spent (In Minutes): 61 minutes Discharge Plan Discharge Items Patient Disposition: Transfer Intermediate Fac Reason For Visit: B/L [facility], AMB [facility] Discharge Diagnosis: Ambulatory dysfunction Back Pain Acute kidney injury Activity: Per Instructions section Exercise/Sports: Gradually increase as tolerated Non-emergency contact: Primary Care Provider and Surgeon Call non-emergency contact if: you have any medication questions, your symptoms worsen, your pain is concerning for you and you have a fever Follow-up/Referrals: Rm Herzog, [Primary Care Provider] - Diet: Carb Consistent or DM2, Heart Healthy and Low Sodium (2gm) Addtl Attending Provider Instructions: Follow-up with your primary care physician in 1 week upon discharge from rehab facility Follow-up with your surgeon Dr. Paiz as advised Consider following with the wound clinic for further management of leg wounds. --Monitor your blood pressure regularly as advised. Discuss with your physician for further adjustment of medications as needed. -- Your diabetic medication pioglitazone is discontinued as he developed significant leg edema. You are started on Lantus 5 units daily. Monitor your blood sugar levels regularly as advised. Discuss with your physician for further adjustment of medications as needed. -- Continue wound care of your leg wounds at rehab facility. Seek immediate medical attention if your symptoms reoccur or worsen Please take all medications as instructed on discharge list below. Please call if you have any questions or problems. You can reach a [facility] hospitalist on duty at [facility] 24 hours a day by calling [phone] Pending Studies at Discharge: No Stand-Alone Forms: My [facility] Skilled Items Patient informed of condition?: Yes DNR: No Discharge Level of Care: Skilled Communicable Disease: No Discharge Prognosis: Stable Lines: None Urinary Catheter: No Medications and DC Order Prescriptions: New amlodipine [Norvasc] 5 mg Tablet 5 mg PO QAM Qty: 30 0RF baclofen 10 mg Tablet 5 mg PO TID PRN (Reason: muscle spasm) Qty: 30 0RF furosemide 20 mg Tablet 20 mg PO DAILY PRN (Reason: edema) Qty: 30 0RF polyethylene glycol 3350 [Miralax] 17 gram Powder In Packet 17 g PO DAILY PRN (Reason: constipation) Qty: 30 0RF sennosides-docusate sodium [Senokot-S] 8.6-50 mg Tablet 1 tab PO BID PRN (Reason: Constipation) Qty: 60 0RF insulin glargine [Lantus U-100 Insulin] 100 unit/mL Solution 5 unit subcut DAILY Qty: 10 0RF Continued tamsulosin 0.4 mg Capsule 0.8 mg PO HS glipizide 5 mg Tablet 5 mg PO BID tramadol 50 mg tablet 50 mg PO Q6H PRN (Reason: pain, moderate) Qty: 30 0RF oxycodone 5 mg tablet 5 mg PO Q6H PRN (Reason: pain) Qty: 30 0RF Held lisinopril 10 mg Tablet 10 mg PO QAM Hold Instructions: Until further recommendations from your primary care physician Discontinued pioglitazone 45 mg Tablet 45 mg PO QAM Discharge Orders: Discharge Order (Routine); Ordered 01/10/24 Ordered By: Colby White Admission Data Admit Date/Time: 12/31/23 17:30 Attending Provider: Colby White Admit Provider: Socorro Gleason Primary Care Provider: Rm Herzog Other Providers: Socorro Gleason; Colby White; Cholo Ojeda; Tony Gordillo; Noah [place] Other Interventions: Discharge Summary Assessment (RN) Last Done: 01/10/24 09:57
== END 2024-01-10 11:44 | DRG 300 ==
LOC: ED 13:56 → EDINP 17:30 → SUATTDRO 17:30 → 2N 01-01 14:04
DX: R26.89 Other abnormalities of gait and mobility; L97.511 Non-pressure chronic ulcer of other part of right foot limited to breakdown of skin; N17.9 Acute kidney failure, unspecified; L97.211 Non-pressure chronic ulcer of right calf limited to breakdown of skin; E66.01 Morbid (severe) obesity due to excess calories; L97.811 Non-pressure chronic ulcer of other part of right lower leg limited to breakdown of skin; Z79.899 Other long term (current) drug therapy; F17.210 Nicotine dependence, cigarettes, uncomplicated; L97.521 Non-pressure chronic ulcer of other part of left foot limited to breakdown of skin; Z98.1 Arthrodesis status; N18.30 Chronic kidney disease, stage 3 unspecified; Z68.39 Body mass index [BMI] 39.0-39.9, adult; I12.9 Hypertensive chronic kidney disease with stage 1 through stage 4 chronic kidney disease, or unspecified chronic kidney disease; Z79.84 Long term (current) use of oral hypoglycemic drugs; E11.621 Type 2 diabetes mellitus with foot ulcer; N40.0 Benign prostatic hyperplasia without lower urinary tract symptoms; I87.2 Venous insufficiency (chronic) (peripheral)